=== PATIENT | female | born 1995 | race Caucasian/White ===

== ENCOUNTER 2017-07-03 09:54 | Inpatient (IN) ==
[2017-07-03] MEDS ORDERED: 0.9 % SODIUM CHLORIDE 2,000 ML IV ONE (10:17)
[2017-07-03] MEDS ORDERED: ACETAMINOPHEN 325 MG TABLET PO ONE (10:17)
--- NOTE | 2017-07-03 10:28 | Emergency Department Note ---
General Adult HPI - General Chief complaint: Dental/Oral Stated complaint: Tooth pain Time Seen by Provider: 07/03/17 09:59 Source: patient Mode of arrival: ambulatory Limitations: no limitations - History of Present Illness HPI Narrative: 21-year-old female presents with left-sided lower dental pain. She also has a fever and is tachycardic. She is type I diabetic. When I see the patient she actually says her 2000 bothering her. She states that yesterday she started having a cough and sinus congestion. Mom states that she had a fever of 104 last night and took medication for this which brought it down. Patient also complains of urinary symptoms and finished antibiotics recently for UTI. She denies any new back pain. She denies any nausea or vomiting. She denies any history of DKA. She has not checked her blood sugar today and it is 343 when we check it. She denies any abdominal pain. She denies any diarrhea. No shortness of breath. No TB exposure - Related Data Home Medications Medication Instructions Recorded Confirmed Insulin Glargine, Human [Lantus] 8 unit SQ HS 04/30/17 07/03/17 Insulin Lispro [Humalog] 1 unit SQ Q6 04/30/17 07/03/17 Allergies Allergy/AdvReac Type Severity Reaction Status Date / Time Sulfa (Sulfonamide AdvReac Intermediate Vomiting Verified 04/30/17 18:54 Antibiotics) Review of Systems All systems ED: reviewed and negative except as stated. Past Medical History - Past Medical History Medical history: Reports: DM (type 1), GERD, kidney stones Psychiatric history: Reports: bipolar, depression [employer] PERSON history: Reports: other (had IUD removed 04/29/17) Surgical history ED: Reports: tonsillectomy Family history: Reports: non-contributory - Social History smoking status: Never smoker Alcohol use: Reports: None Drug use: Reports: methamphetamine, other (frequently) Physical Exam Her complaint is tooth #17 but there is no tenderness. Mild swelling of the gums. No fluctuance. Limitations: no limitations General appearance: alert, in no apparent distress Head: atraumatic Eye: Present: normal appearance. Absent: conjunctival injection ENT: mucous membranes dry Neck: Present: normal inspection, full ROM Chest: Present: normal inspection, symmetric chest wall rise Respiratory: Present: normal lung sounds bilaterally Cardiovascular: Present: tachycardia, normal heart sounds Abdominal: Present: soft, normal bowel sounds. Absent: tenderness Extremities: Present: normal inspection, full ROM Neurological: Present: alert, oriented X3 Psychiatric: Present: flat affect Skin: Present: warm, dry, intact Course Course Narrative: Looks like she is in a mild DKA with an elevated anion gap and an elevated acetone level. She is dehydrated and was given 3 L of fluid. She was started on an insulin drip. She has pneumonia and urinary tract infection. Vital Signs Temperature 100.0 F H 07/03/17 09:55 Pulse Rate 127 H 07/03/17 09:55 Respiratory Rate 18 07/03/17 09:55 Blood Pressure 110/76 07/03/17 09:55 Pulse Oximetry (%) 97 07/03/17 09:55 Temperature 98 F 07/03/17 14:35 Pulse Rate 103 H 07/03/17 14:35 Respiratory Rate 16 07/03/17 14:35 Blood Pressure 103/70 07/03/17 14:35 Pulse Oximetry (%) 100 07/03/17 14:35 Medical Decision Making - Lab Data Lab results reviewed: Yes I reviewed the patient's lab results. Result diagrams: 07/03/17 10:31 07/03/17 10:30 Lab Results 07/03/17 07/03/17 07/03/17 Range/Units 10:29 10:29 10:30 WBC (4.5-11.0) K/mcL RBC (4.00-5.20) M/mcL Hgb (12.0-15.0) g/dL Hct (36.0-48.0) % POC Hct 37.0 (36.0-48.0) % MCV (80.0-100.0) fL MCH (26.0-34.0) pg MCHC (31.0-36.0) g/dL RDW (11.5-14.5) % Plt Count (140-440) K/mcL MPV (7.4-10.4) fL Total Counted Seg Neutrophils % (38-78) % Band Neutrophils % (0-10) % Lymphocytes % (15-49) % Monocytes % (Manual) (1-12) % Reactive Lymphocytes (0-2) % Platelet Estimate (NORMAL) RBC Morphology (NORMAL) VBG pH (7.32-7.42) U VBG Lactic Acid (0.5-2.2) mmol/L POC Sodium 129 L (133-145) mmol/L Sodium 128 L (133-145) mmol/L POC Potassium 3.5 (3.3-5.1) mmol/L Potassium 4.0 (3.3-5.1) mmol/L POC Chloride 94 L (96-108) mmol/L Chloride 88 L (96-108) mmol/L Carbon Dioxide 20 L (22-30) mmol/L POC Total CO2 20 L (22-30) mmol/L Anion Gap 20.0 H (8-16) POC BUN 5 L (6-20) mg/dl BUN 7 (6-20) mg/dl Creatinine 0.7 (0.6-1.1) mg/dl POC Creatinine 0.4 L (0.6-1.1) mg/dl GFR Calculation 123 Glucose 376 H (70-105) mg/dL POC Glucose 365 H (70-105) mg/dL Calcium 9.0 (8.6-10.4) mg/dl POC WB Ioniz Calcium 1.06 L (1.16-1.32) mmol/L Total Bilirubin 0.7 (0.0-1.0) mg/dL AST 22 (0-37) U/l ALT 17 (0-40) U/l Alkaline Phosphatase 110 (39-117) U/L C-React Prot High Sens 186.7 H (1.0-3.0) mg/L Total Protein 6.6 (5.9-8.4) gm/dL Albumin 4.0 (3.2-5.2) gm/dL Globulin 2.6 (2.2-3.7) gm/dL Albumin/Globulin Ratio 1.5 (1.0-2.3) Beta-Hydroxybutyrate 2.76 H (< 0.27) mmol/L Procalcitonin 0.48 (<0.10) ng/mL Urine Color Urine Appearance Urine pH (5.0-9.0) Ur Specific [place] (1.000-1.035) Urine Protein (NEG) mg/dL Urine Glucose (UA) (NEG) mg/dL Urine Ketones (NEG) mg/dL Urine Occult Blood (<0.03) mg/dL Urine Nitrate (NEG) Urine Bilirubin (NEG) mg/dL Urine Urobilinogen (NEG) mg/dL Ur Leukocyte Esterase (NEG) /uL Urine RBC (0-1) /hpf Urine WBC (0-4) /hpf Ur Squamous Epith Cells (0-4) /hpf Ur Transition Epith Cell (0-2) /hpf Urine Bacteria (0) /hpf Ur Culture Indicated? Influenza A (Rapid) Influenza B (Rapid) 07/03/17 07/03/17 07/03/17 Range/Units 10:31 10:50 10:50 WBC 15.6 H (4.5-11.0) K/mcL RBC 4.51 (4.00-5.20) M/mcL Hgb 13.6 (12.0-15.0) g/dL Hct 39.5 (36.0-48.0) % POC Hct (36.0-48.0) % MCV 87.6 (80.0-100.0) fL MCH 30.1 (26.0-34.0) pg MCHC 34.3 (31.0-36.0) g/dL RDW 13.5 (11.5-14.5) % Plt Count 263 (140-440) K/mcL MPV 7.7 (7.4-10.4) fL Total Counted 100 Seg Neutrophils % 87 H (38-78) % Band Neutrophils % 3 (0-10) % Lymphocytes % 5 L (15-49) % Monocytes % (Manual) 4 (1-12) % Reactive Lymphocytes 1 (0-2) % Platelet Estimate Normal (NORMAL) RBC Morphology Normal (NORMAL) VBG pH (7.32-7.42) U VBG Lactic Acid (0.5-2.2) mmol/L POC Sodium (133-145) mmol/L Sodium (133-145) mmol/L POC Potassium (3.3-5.1) mmol/L Potassium (3.3-5.1) mmol/L POC Chloride (96-108) mmol/L Chloride (96-108) mmol/L Carbon Dioxide (22-30) mmol/L POC Total CO2 (22-30) mmol/L Anion Gap (8-16) POC BUN (6-20) mg/dl BUN (6-20) mg/dl Creatinine (0.6-1.1) mg/dl POC Creatinine (0.6-1.1) mg/dl GFR Calculation Glucose (70-105) mg/dL POC Glucose (70-105) mg/dL Calcium (8.6-10.4) mg/dl POC WB Ioniz Calcium (1.16-1.32) mmol/L Total Bilirubin (0.0-1.0) mg/dL AST (0-37) U/l ALT (0-40) U/l Alkaline Phosphatase (39-117) U/L C-React Prot High Sens (1.0-3.0) mg/L Total Protein (5.9-8.4) gm/dL Albumin (3.2-5.2) gm/dL Globulin (2.2-3.7) gm/dL Albumin/Globulin Ratio (1.0-2.3) Beta-Hydroxybutyrate (< 0.27) mmol/L Procalcitonin (<0.10) ng/mL Urine Color Yellow Urine Appearance Hazy Urine pH 5.0 (5.0-9.0) Ur Specific [place] 1.044 H (1.000-1.035) Urine Protein Neg (NEG) mg/dL Urine Glucose (UA) >=500 A (NEG) mg/dL Urine Ketones 80 A (NEG) mg/dL Urine Occult Blood 0.03 A (<0.03) mg/dL Urine Nitrate Neg (NEG) Urine Bilirubin Neg (NEG) mg/dL Urine Urobilinogen Neg (NEG) mg/dL Ur Leukocyte Esterase 25 A (NEG) /uL Urine RBC 9 H (0-1) /hpf Urine WBC 23 H (0-4) /hpf Ur Squamous Epith Cells 2 (0-4) /hpf Ur Transition Epith Cell < 1 (0-2) /hpf Urine Bacteria 0 (0) /hpf Ur Culture Indicated? Yes Influenza A (Rapid) Presumed negative Influenza B (Rapid) Presumed negative 07/03/17 07/03/17 Range/Units 11:07 13:49 WBC (4.5-11.0) K/mcL RBC (4.00-5.20) M/mcL Hgb (12.0-15.0) g/dL Hct (36.0-48.0) % POC Hct (36.0-48.0) % MCV (80.0-100.0) fL MCH (26.0-34.0) pg MCHC (31.0-36.0) g/dL RDW (11.5-14.5) % Plt Count (140-440) K/mcL MPV (7.4-10.4) fL Total Counted Seg Neutrophils % (38-78) % Band Neutrophils % (0-10) % Lymphocytes % (15-49) % Monocytes % (Manual) (1-12) % Reactive Lymphocytes (0-2) % Platelet Estimate (NORMAL) RBC Morphology (NORMAL) VBG pH 7.39 (7.32-7.42) U VBG Lactic Acid 0.9 (0.5-2.2) mmol/L POC Sodium (133-145) mmol/L Sodium (133-145) mmol/L POC Potassium (3.3-5.1) mmol/L Potassium (3.3-5.1) mmol/L POC Chloride (96-108) mmol/L Chloride (96-108) mmol/L Carbon Dioxide (22-30) mmol/L POC Total CO2 (22-30) mmol/L Anion Gap (8-16) POC BUN (6-20) mg/dl BUN (6-20) mg/dl Creatinine (0.6-1.1) mg/dl POC Creatinine (0.6-1.1) mg/dl GFR Calculation Glucose (70-105) mg/dL POC Glucose (70-105) mg/dL Calcium (8.6-10.4) mg/dl POC WB Ioniz Calcium (1.16-1.32) mmol/L Total Bilirubin (0.0-1.0) mg/dL AST (0-37) U/l ALT (0-40) U/l Alkaline Phosphatase (39-117) U/L C-React Prot High Sens (1.0-3.0) mg/L Total Protein (5.9-8.4) gm/dL Albumin (3.2-5.2) gm/dL Globulin (2.2-3.7) gm/dL Albumin/Globulin Ratio (1.0-2.3) Beta-Hydroxybutyrate (< 0.27) mmol/L Procalcitonin (<0.10) ng/mL Urine Color Urine Appearance Urine pH (5.0-9.0) Ur Specific [place] (1.000-1.035) Urine Protein (NEG) mg/dL Urine Glucose (UA) (NEG) mg/dL Urine Ketones (NEG) mg/dL Urine Occult Blood (<0.03) mg/dL Urine Nitrate (NEG) Urine Bilirubin (NEG) mg/dL Urine Urobilinogen (NEG) mg/dL Ur Leukocyte Esterase (NEG) /uL Urine RBC (0-1) /hpf Urine WBC (0-4) /hpf Ur Squamous Epith Cells (0-4) /hpf Ur Transition Epith Cell (0-2) /hpf Urine Bacteria (0) /hpf Ur Culture Indicated? Influenza A (Rapid) Influenza B (Rapid) - Radiology Data Radiology results reviewed: Yes I reviewed the patient's radiology results. 1. Mild right apical infiltrate consistent with pneumonia. 2. Otherwise negative chest x-ray Disposition Pt seen by MYS[facility] DBA/PA only: Yes Clinical Impression: Diabetic Ketoacidosis, Community acquired bacterial pneumonia UTI (urinary tract infection) Qualifiers: Urinary tract infection type: acute cystitis Disposition: Xfer As Inpt ([facility]) Condition: Fair
--- NOTE | 2017-07-03 10:46 | XRay Report ---
INDICATION: Cough. Fever. TECHNIQUE: PA and lateral upright chest x-ray COMPARISON: 03/04/2017. 07/05/2016 FINDINGS:Relatively subtle right apical infiltrate. This is consistent with pneumonia. Follow-up radiographs recommended. Lungs are otherwise negative. Heart size and vascularity are normal. Shireen and mediastinum are negative. Incidental note is made of a pectus excavatum deformity. Thoracic spine is negative. No compression deformities IMPRESSION: 1. Mild right apical infiltrate consistent with pneumonia. 2. Otherwise negative chest x-ray Interpreted and Authenticated by: Riki Alas 07/03/17
[2017-07-03] MEDS ORDERED: cefTRIAXone 1 GM VIAL IV ONE (10:57)
[2017-07-03 11:08] LABS: Mean Cell Volume 87.6 fL (80.0-100.0); Mean Corpuscular HGB Conc 34.3 g/dL (31.0-36.0); Mean Corpuscular Hemoglobin 30.1 pg (26.0-34.0); Platelet Count 263 K/mcL (140-440); RBC 4.51 M/mcL (4.00-5.20); Red Cell Distribution Width 13.5 % (11.5-14.5)
[2017-07-03] MEDS ORDERED: INSULIN REGULAR, HUMAN 1 UNIT/0.01 ML UNIT SQ ONE (11:20)
[2017-07-03 11:24] LABS: Band Neutrophils % 3 % (0-10); Lymphocytes % 5 % (15-49); Monocytes % (Manual) 4 % (1-12); Platelet Estimate NORMAL (NORMAL); RBC Morphology NORMAL (NORMAL); Segmented Neutrophils % 87 % (38-78)
[2017-07-03 11:28] LABS: ALT/SGPT 17 U/l (0-40); Albumin/Globulin Ratio 1.5 (1.0-2.3); Alkaline Phosphatase 110 U/L (39-117); Blood Urea Nitrogen 7 mg/dl (6-20)
[2017-07-03 11:40] LABS: Appearance,Urine HAZY; Bacteria,Urine 0 /hpf (0); Bilirubin,Urine NEG (NEG); Color,Urine YELLOW; Glucose,Urine (UA) >=500 mg/dL (NEG); Leukocyte Esterase,Urine 25 /uL (NEG); Protein,Urine NEG (NEG); Specific Gravity,Urine 1.044 (1.000-1.035); Urine Blood 0.03 mg/dL (<0.03); Urine RBC 9 /hpf (0-1); Urine Squamous Epithelial Cell 2 /hpf (0-4); Urine Transitional Epi Cells < 1 /hpf (0-2); Urine WBC 23 /hpf (0-4); Urobilinogen,Urine NEG (NEG)
[2017-07-03 11:41] LABS: Beta Hydroxybutyrate 2.76 mmol/L (< 0.27); CRP,High Sensitivity 186.7 mg/L (1.0-3.0)
[2017-07-03] MEDS ORDERED: AZITHROMYCIN 500 MG in DEXTROSE 5% IN WATER 250 ML IV ONE (12:58)
[2017-07-03] MEDS ORDERED: INSULIN REGULAR, HUMAN 50 UNIT in 0.9 % SODIUM CHLORIDE 99.5 ML IV ONE (13:04)
[2017-07-03] MEDS ORDERED: DEXTROSE 5%-1/2NS 1,000 ML IV ONE (13:06)
[2017-07-03] MEDS ORDERED: AZITHROMYCIN 500 MG VIAL IV ONE (13:13)
--- NOTE | 2017-07-03 13:56 | Internal Med History&Physical ---
Medical - H&P: HPI Patient information: Note initiated : 07/03/17 at 1:52 pm Service Date, if different from initiated Date: [] Patient: Elizabeth To a 21 y/o F admitted on for Tooth pain. Chief Complaint: [] History of present illness: Ms. To is a 21 year old Female with h/o Typ1 DM, on insulin presents to the ER today for dental, pain, not feeling well for the last few days According to the patient she has not been feeling well since Wednesday, her situation worsened on when she slept the whole day she has been having pain in the left lower jaw, fever chills drowsiness fatigue nausea, and since she was getting worse she was brought to the hospital. Mother was at bedside who provided most of the history patient did not answer many questions directly. According to the mother the patient has not been doing well for the last few days, and she has been checking on her daughter on Facebook to see how she was doing the mother has not seen the doctor online since and therefore was concerned and sent a friend to check on her and they found that the patient was not doing well and was therefore brought into the hospital. The patient admits to having some cough that started today, she notes she has nausea but no vomiting, she notes she has symptoms suggestive of UTI. She has not passed any urine yesterday according to the mother. The patient notes that she has been having dental infection for the last 3 months, she has seen providers at the [facility] who would not do a dental extraction because of elevated glucose values. She notes she has been taking insulin regularly but has skipped her insulin over the last 2-3 days. She has never been admitted to the hospital for DKA. Patient is febrile in the ED temperature 101.4, tachycardic with a heart rate of 100 110, respiration is normal, blood pressure stable 101/69 patient saturating 100% on room air. Patient chest x-ray is interpreted as a right apical lobe pneumonia. Mild. Patient's labs show elevated WBC count of 15,000, hemoglobin 13.6, sodium is 129 , potassium 4.0, bicarbonate 20, anion gap is 20, BUN 7 creatinine 0.7 glucose elevated at 376, beta hydroxybutyrate elevated at 2.76, pro calcitonin 0.56, lactic acid is 0.9. UA shows positive WBCs RBCs and a few leukocyte esterase, elevated glucose values. ketones present Patient was admitted to the ICU with a diagnosis of DKA, secondary to noncompliance with insulin as well as infection, dental infection as well as right pneumonia. There is also a possible UTI All systems: reviewed and no additional remarkable complaints except as stated ( as per HPI) Medical - H&P: PMH Medical history: Type 1 diabetes She admits to having history of anxiety-depression is not on any medications for same Surgical history: History of tonsillectomy Family history: reviewed and not pertinent Social history: Lives by herself Denies any history of smoking recreational drug use Medical - H&P: Meds Home Medications Medication Instructions Recorded Confirmed Type Insulin Glargine, Human [Lantus] 8 unit SQ HS 04/30/17 07/03/17 History Insulin Lispro [Humalog] 1 unit SQ Q6 04/30/17 07/03/17 History Allergies Allergy/AdvReac Type Severity Reaction Status Date / Time Sulfa (Sulfonamide AdvReac Intermediate Vomiting Verified 04/30/17 18:54 Antibiotics) Medical - H&P: Exam - Constitutional Vitals: Temp Pulse Resp BP Pulse Ox 101.4 F H 96 H 18 98/64 100 07/03/17 10:11 07/03/17 11:31 07/03/17 13:01 07/03/17 13:01 07/03/17 11:31 Exam: GENERAL: The patient is a well-developed, well-nourished in no apparent distress. Is alert and oriented x3. VITAL SIGNS: Reviewed and as noted elsewhere. HEENT: Head is normocephalic and atraumatic. Extraocular muscles are intact. Pupils are equal, round, and reactive to light. Nares appeared normal. Mouth appears any without lesions. Mucous membranes are dry Left lower dentition reviewed, patient has dental caries in the left molar wisdom tooth, tenderness surrounding the region, pus surrounding the tooth. NECK: Normal to inspection, Supple, No lymphadenopathy or thyromegaly. LUNGS: Air entry equal on both sides, no wheezing, crackles or rhonchi noted. No accessory muscles of respiration HEART: Regular rate and rhythm normal, S1 and S2 heard, no Gallop, S3 or Rub Noted, No Gross murmur heard. ABDOMEN: Soft, nontender, and nondistended. Positive bowel sounds. No hepatosplenomegaly was noted. EXTREMITIES: No cyanosis, clubbing, rash, lesions or edema. NEUROLOGIC: Cranial nerves II through XII are grossly intact. Motor and Sensory System Grossly Intact PSYCHIATRIC: Normal affect, Normal Mood. Appropriate Behavior. SKIN: No ulceration or wounds noted, No jaundice, No rash noted. Medical - H&P: Reslt - Labs CBC & Chem 7: 07/03/17 10:31 07/03/17 10:30 Labs: Short CBC 07/03/17 Range/Units 10:31 WBC 15.6 H (4.5-11.0) K/mcL Hgb 13.6 (12.0-15.0) g/dL Hct 39.5 (36.0-48.0) % Plt Count 263 (140-440) K/mcL BMP 07/03/17 10:30 Sodium 128 L Potassium 4.0 Chloride 88 L Carbon Dioxide 20 L BUN 7 Creatinine 0.7 Glucose 376 H Calcium 9.0 Liver Function 07/03/17 Range/Units 10:30 Total Bilirubin 0.7 (0.0-1.0) mg/dL AST 22 (0-37) U/l ALT 17 (0-40) U/l Alkaline Phosphatase 110 (39-117) U/L Albumin 4.0 (3.2-5.2) gm/dL Urine 07/03/17 Range/Units 10:50 Urine Color Yellow Urine Appearance Hazy Urine pH 5.0 (5.0-9.0) Ur Specific [place] 1.044 H (1.000-1.035) Urine Protein Neg (NEG) mg/dL Urine Glucose (UA) >=500 A (NEG) mg/dL Medical - H&P: A/P - Narrative A/P Narrative: A/P Diabetic Ketoacidosis [place] Dental Abscess Type 1 Diabetes Urinary Tract Infection Plan Admit to ICU IV fluids, Insulin ggt, q1h finger stick, d5 half ns saline, with KCL for now, IV saline bolux x 1 IV ertanepum and iv zithromax for antibiotics covergae, She has dental abscess, UTI and pneumoina. IV PPI trend labs watch for low mg, low phos, low K, and treat switch to sq once gap closed, and able to tolerate po well will need dental extraction, in the near future, but will need infection to be controlled first. DVT hep sq Diet NPO
[2017-07-03] MEDS ORDERED: ONDANSETRON 4 MG/2 ML VIAL IV ONE (14:09)
[2017-07-03] MEDS ORDERED: ONDANSETRON 4 MG/2 ML VIAL IV PRN (14:42)
[2017-07-03] MEDS ORDERED: NALOXONE HCL 0.4 MG/ML VIAL IV PRN (14:42)
[2017-07-03] MEDS ORDERED: 0.9 % SODIUM CHLORIDE 1,000 ML IV ONE (14:42)
[2017-07-03] MEDS: DEXTROSE 5%-1/2NS W/20MEQ KCL 1,000 ML IV SCH ×3 (15:22→20:26)
[2017-07-03] MEDS: PANTOPRAZOLE 40 MG VIAL IV SCH (15:29)
[2017-07-03] MEDS: ACETAMINOPHEN 325 MG TABLET PO PRN ×2 (15:31→21:03)
[2017-07-03] MEDS: 0.9 % SODIUM CHLORIDE 10 ML SYRINGE IV SCH ×2 (15:32→21:54)
[2017-07-03] MEDS ORDERED: DEXTROSE 50% 50 ML VIAL IV ONE (15:40)
[2017-07-03 15:44] LABS: Amphetamine Screen,Urine SUSPECT POSITIVE (NONDETECTED); Benzodiazepines Screen,Urine NONE DETECTED (NONDETECTED); Cocaine Screen,Urine NONE DETECTED (NONDETECTED); Opiate Screen,Urine NONE DETECTED (NONDETECTED); Oxycodone, Urine Screen NONE DETECTED (NONDETECTED)
[2017-07-03] MEDS: PROMETHAZINE 25 MG/ML VIAL IV PRN ×2 (16:00→21:04)
[2017-07-03] MEDS: ERTAPENEM 1 GM in 0.9 % SODIUM CHLORIDE 50 ML IV SCH (16:17)
[2017-07-03] MEDS ORDERED: MAGNESIUM SULFATE 2 GM/50 ML BAG IV ONE (17:32)
[2017-07-03] MEDS ORDERED: POTASSIUM PHOSPHATE 20 MEQ in DEXTROSE 5% IN WATER 250 ML IV ONE (17:32)
[2017-07-03] MEDS ORDERED: DEXTROSE 50% 50 ML VIAL IV PRN ×2 (17:55→20:47)
[2017-07-03 18:12] LABS: Blood Urea Nitrogen 5 mg/dl (6-20)
[2017-07-03] MEDS ORDERED: POTASSIUM PHOSPHATE 66 MEQ/15 ML VIAL IV ONE (19:51)
[2017-07-03 20:27] LABS: Blood Urea Nitrogen 4 mg/dl (6-20)
[2017-07-03] MEDS ORDERED: DEXTROSE 31 GM ORAL.SUSP PO PRN (20:47)
[2017-07-03] MEDS: 0.9 % SODIUM CHLORIDE 1,000 ML IV SCH (20:57)
[2017-07-03] MEDS: INSULIN LISPRO 1 UNIT/0.01 ML UNIT SQ SCH (20:58)
[2017-07-03] MEDS ORDERED: INSULIN GLARGINE, HUMAN 1 UNIT/0.01 ML SQ ONE (20:59)
[2017-07-03] MEDS: DOCUSATE SODIUM 100 MG CAPSULE PO SCH (21:03)
[2017-07-03] MEDS: HEPARIN 5,000 UNIT/ML VIAL SQ SCH (21:04)
[2017-07-03] MEDS: INSULIN GLARGINE, HUMAN 1 UNIT/0.01 ML SQ SCH (21:04)
[2017-07-03] MEDS ORDERED: IBUPROFEN 600 MG TABLET PO ONE (21:49)
[2017-07-03] MEDS ORDERED: INSULIN REGULAR, HUMAN 50 UNIT in 0.9 % SODIUM CHLORIDE 100 ML IV SCH (22:00)
[2017-07-03] MEDS ORDERED: VANCOMYCIN 1,000 MG in 0.9 % SODIUM CHLORIDE 250 ML IV ONE (23:21)
[2017-07-03] MEDS ORDERED: VANCOMYCIN PER PHARMACY IV ONE (23:21)
[2017-07-04] MEDS ORDERED: 0.9 % SODIUM CHLORIDE 1,000 ML IV ONE ×2 (04:13→04:14)
[2017-07-04 05:00] LABS: Basophils # (Auto) 0 K/mcL (0.0-0.3); Basophils % (Auto) 0 % (0.0-2.0); Eosinophils # (Auto) 0.3 K/mcL (0.0-0.7); Eosinophils % (Auto) 3.2 % (0.0-7.0); Granulocytes % (Auto) 78.3 % (38.0-78.0); Lymphocytes # (Auto) 1.1 K/mcL (1.5-4.8); Lymphocytes % (Auto) 10.7 % (15.5-49.0); Mean Cell Volume 88.5 fL (80.0-100.0); Mean Corpuscular HGB Conc 34.1 g/dL (31.0-36.0); Mean Corpuscular Hemoglobin 30.1 pg (26.0-34.0); Monocytes # (Auto) 0.8 K/mcL (0.1-0.9); Monocytes % (Auto) 7.8 % (1.0-12.0); Platelet Count 189 K/mcL (140-440); RBC 3.65 M/mcL (4.00-5.20); Red Cell Distribution Width 13.2 % (11.5-14.5)
[2017-07-04 05:12] LABS: ALT/SGPT 11 U/l (0-40); Albumin 2.3 gm/dL (3.2-5.2); Albumin/Globulin Ratio 1.2 (1.0-2.3); Alkaline Phosphatase 58 U/L (39-117); Bilirubin,Direct < 0.2 mg/dL (0.0-0.3); Blood Urea Nitrogen 5 mg/dl (6-20); Gamma Glutamyl Transpeptidase 8 U/L (5-36); Uric Acid 1.7 mg/dL (2.5-8.0)
[2017-07-04] MEDS: 0.9 % SODIUM CHLORIDE 10 ML SYRINGE IV SCH ×3 (06:15→22:08)
[2017-07-04] MEDS ORDERED: VANCOMYCIN PER PHARMACY IV SCH (07:15)
[2017-07-04] MEDS ORDERED: MAGNESIUM SULFATE 2 GM/50 ML BAG IV ONE (07:54)
[2017-07-04] MEDS ORDERED: POTASSIUM PHOSPHATE 40 MEQ in DEXTROSE 5% IN WATER 500 ML IV ONE (08:00)
[2017-07-04] MEDS: PROMETHAZINE 25 MG/ML VIAL IV PRN ×2 (08:16→21:00)
[2017-07-04] MEDS: PANTOPRAZOLE 40 MG VIAL IV SCH (08:16)
[2017-07-04] MEDS: ERTAPENEM 1 GM in 0.9 % SODIUM CHLORIDE 50 ML IV SCH (08:19)
--- NOTE | 2017-07-04 08:20 | Emergency Department Note ---
ED Note Addendum Note Addendum: I saw this patient with Ricarda Lopez PA-C. I agree with her evaluation management documentation. In particular it is noted this patient has DKA likely from community-acquired pneumonia dental abscess and a UTI. She was started on antibiotics and insulin along with IV fluids here in the ER. Admitted to Dr. Simmons
[2017-07-04] MEDS ORDERED: VANCOMYCIN 1,000 MG in 0.9 % SODIUM CHLORIDE 250 ML IV SCH (09:00)
[2017-07-04] MEDS ORDERED: AZITHROMYCIN 250 MG in DEXTROSE 5% IN WATER 250 ML IV SCH (09:00)
[2017-07-04] MEDS: DOCUSATE SODIUM 100 MG CAPSULE PO SCH ×2 (09:27→21:51)
[2017-07-04] MEDS: HEPARIN 5,000 UNIT/ML VIAL SQ SCH ×2 (09:30→21:51)
[2017-07-04] MEDS: ACETAMINOPHEN 325 MG TABLET PO PRN ×3 (09:30→23:51)
[2017-07-04] MEDS: INSULIN LISPRO 1 UNIT/0.01 ML UNIT SQ SCH ×4 (09:42→21:51)
[2017-07-04] MEDS: 0.9 % SODIUM CHLORIDE 1,000 ML IV SCH (10:19)
--- NOTE | 2017-07-04 11:42 | Internal Med Progress Note ---
Medical - PN: Subj Patient information: Note initiated : 07/04/17 at 11:40 am Service Date, if different from initiated Date: [] Patient: Elizabeth To a 21 y/o F admitted on 07/03/17 for Tooth pain. Chief Complaint: [] Interval history: Ms. To is a 21 year old Female with h/o Typ1 DM, on insulin presents to the ER today for dental, pain, not feeling well for the last few days According to the patient she has not been feeling well since Wednesday, her situation worsened on when she slept the whole day she has been having pain in the left lower jaw, fever chills drowsiness fatigue nausea, and since she was getting worse she was brought to the hospital. Mother was at bedside who provided most of the history patient did not answer many questions directly. According to the mother the patient has not been doing well for the last few days, and she has been checking on her daughter on Facebook to see how she was doing the mother has not seen the doctor online since and therefore was concerned and sent a friend to check on her and they found that the patient was not doing well and was therefore brought into the hospital. The patient admits to having some cough that started today, she notes she has nausea but no vomiting, she notes she has symptoms suggestive of UTI. She has not passed any urine yesterday according to the mother. The patient notes that she has been having dental infection for the last 3 months, she has seen providers at the [facility] who would not do a dental extraction because of elevated glucose values. She notes she has been taking insulin regularly but has skipped her insulin over the last 2-3 days. She has never been admitted to the hospital for DKA. Patient is febrile in the ED temperature 101.4, tachycardic with a heart rate of 100 110, respiration is normal, blood pressure stable 101/69 patient saturating 100% on room air. Patient chest x-ray is interpreted as a right apical lobe pneumonia. Mild. Patient's labs show elevated WBC count of 15,000, hemoglobin 13.6, sodium is 129 , potassium 4.0, bicarbonate 20, anion gap is 20, BUN 7 creatinine 0.7 glucose elevated at 376, beta hydroxybutyrate elevated at 2.76, pro calcitonin 0.56, lactic acid is 0.9. UA shows positive WBCs RBCs and a few leukocyte esterase, elevated glucose values. ketones present Patient was admitted to the ICU with a diagnosis of DKA, secondary to noncompliance with insulin as well as infection, dental infection as well as right pneumonia. There is also a possible UTI July 04 The patient seen examined, overnight events noted She had fever and low bp overnight, responded to IV fluids. BP Stable now. Her anion gap closed yesterday and she was transitioned to subcu Lantus, she tolerated the transition well. This morning Remained closed. Patient blood cultures positive for gram-positive cocci 4 out of 4 bottles. Morning patient reported that she admits using IV drug use, last use 1 week ago IV heroin He also admits to use of methamphetamines, urine tox is positive for meth low phosphate and low potassium to be replaced, replace magnesium continue to monitor in the unit. echo ordered , lopez placed Pertinent ROS: Denies headache, dizziness Denies chest pain, palpitations Denies cough or shortness of breath Denies abdominal pain, nausea or vomiting. Additional PMFSH (Level 3 Only): Medical History Chest pain (Acute) Back pain (Chronic) Abdominal pain (Chronic) Malaise (Chronic) Suicidal thoughts (Chronic) GERD (gastroesophageal reflux disease) (Chronic) Eczema (Chronic) History of kidney stones (Chronic) Right sided abdominal pain (Chronic) Urinary calculi (Chronic) Ureteral obstruction (Chronic) Anxiety disorder (Chronic) Depression with anxiety (Chronic) Thoracic back pain (Chronic) Hydronephrosis (Chronic) Urinary tract infection (Chronic) Cough (Chronic) Gastroesophageal reflux during in second trimester, antepartum ( Chronic) Chronic cough (Chronic) Spasm of thoracolumbar muscle (Chronic) Urinary tract infection (Chronic) Urinary tract infection (Chronic) Cramps, extremity (Chronic) - Constitutional Vitals: Vital Signs Temp Pulse Resp BP Pulse Ox 96.1 F L 72 12 103/75 98 07/04/17 07:00 07/04/17 05:01 07/04/17 07:00 07/04/17 07:00 07/04/17 07:00 Period Temp Pulse Resp BP Sys/Payne Pulse Ox Last 24 Hr 94.7 F-101.9 F 68-105 10-28 70-111/48-75 95-100 Intake and Output 07/03/17 07/04/17 07/04/17 21:59 05:59 13:59 Intake Total 2504 / 2504 2654.5455 / 2654.5455 1600 / 1600 Output Total 700 / 700 1350 / 1350 Balance 1804 / 1804 1304.5455 / 1304.5455 1600 / 1600 Weight 119 lb 12.8 oz Intake & Output: Intake & Output 07/03/17 07/04/17 07/04/17 21:59 05:59 13:59 Intake Total 2504 / 2504 2654.5455 / 2654.5455 1600 / 1600 Output Total 700 / 700 1350 / 1350 Balance 1804 / 1804 1304.5455 / 1304.5455 1600 / 1600 Weight 119 lb 12.8 oz Intake: IV 2504 / 2504 2654.5455 / 2654.5455 1600 / 1600 Sodium Chloride 0.9% 1,000 ml @ 2000 / 2000 1000 / 1000 75 mls/hr IV .[id number] [facility] Rx#: [id number] Zithromax 250 mg In Dextrose 5% 250 / 250 in Water 250 ml @ 250 mls/hr IV DAILY [facility] Rx#:[id number] Dextrose 5%-1/2Ns IV Solution 1 429 / 429 ,000 ml @ 250 mls/hr IV .Q4H ONE Rx#:[id number] Dextrose 5%-1/2Ns W/20Meq KCl 1 1025 / 1025 ,000 ml @ 200 mls/hr IV .Q5H [facility] Rx#:[id number] INVanz 1 GM In Sodium Chloride 50 / 50 50 / 50 0.9% 50 ml @ 100 mls/hr IV DAILY [facility] Rx#:[id number] Vancomycin 1,000 mg In Sodium 250 / 250 250 / 250 Chloride 0.9% 250 ml @ 250 mls/ hr IV Q12H [facility] Rx#:[id number] Output: Urine Catheter Amount 550 / 550 Void Amount 700 / 700 800 / 800 Other: # Voids 1 1 # Bowel Movements 1 Exam: Constitutional; Afebrile, cooperative, alert, not in distress. Eyes- No icterus, , No periorbital swelling Ears- Ext ear normal, hearing normal to conversation. Neck- Midline trachea, supple Respiratory system: Air Entry equal on both sides, No crackles or wheezing, no rhonchi. CVS- Rate rhythm regular, S1,S2 heard, no gallop, no rub. Abdomen- Soft nontender abdomen, no organomegaly, no tenderness, no guarding or rigidity, [employer]- AOOx3, moving all extremities, no gross focal deficit noted. Medical - PN: Obj Da - Labs CBC & Chem 7: 07/04/17 04:00 07/04/17 04:00 Labs: Abnormal Lab Results 07/04/17 07/04/17 07/04/17 04:00 04:00 04:00 WBC RBC 3.65 L Hgb 11.0 L Hct 32.3 L Gran % 78.3 H Lymph % (Auto) 10.7 L Gran # 8.4 H Lymph # (Auto) 1.1 L Seg Neutrophils % Lymphocytes % POC Sodium Sodium Potassium POC Chloride Chloride Carbon Dioxide 18 L POC Total CO2 Anion Gap POC BUN BUN 5 L Creatinine 0.5 L POC Creatinine Glucose 221 H POC Glucose Uric Acid 1.7 L Calcium 6.4 L POC WB Ioniz Calcium Phosphorus 2.3 L C-React Prot High Sens Total Protein 4.3 L Albumin 2.3 L Globulin 2.0 L Beta-Hydroxybutyrate 0.71 H Ur Specific [place] Urine Glucose (UA) Urine Ketones Urine Occult Blood Ur Leukocyte Esterase Urine RBC Urine WBC Ur Amphetamines Screen Mycoplasma pneumon IgM 07/03/17 07/03/17 07/03/17 19:30 17:07 13:59 WBC RBC Hgb Hct Gran % Lymph % (Auto) Gran # Lymph # (Auto) Seg Neutrophils % Lymphocytes % POC Sodium Sodium Potassium 3.2 L POC Chloride Chloride Carbon Dioxide 21 L 20 L POC Total CO2 Anion Gap POC BUN BUN 4 L 5 L Creatinine 0.5 L POC Creatinine Glucose 184 H 217 H POC Glucose Uric Acid Calcium 7.6 L 7.2 L POC WB [employer]iz Calcium Phosphorus 2.6 L C-React Prot High Sens Total Protein Albumin Globulin Beta-Hydroxybutyrate Ur Specific [place] Urine Glucose (UA) Urine Ketones Urine Occult Blood Ur Leukocyte Esterase Urine RBC Urine WBC Ur Amphetamines Screen Mycoplasma pneumon IgM 07/03/17 07/03/17 07/03/17 10:50 10:45 10:45 WBC RBC Hgb Hct Gran % Lymph % (Auto) Gran # Lymph # (Auto) Seg Neutrophils % Lymphocytes % POC Sodium Sodium Potassium POC Chloride Chloride Carbon Dioxide POC Total CO2 Anion Gap POC BUN BUN Creatinine POC Creatinine Glucose POC Glucose Uric Acid Calcium POC WB [employer] Calcium Phosphorus C-React Prot High Sens Total Protein Albumin Globulin Beta-Hydroxybutyrate Ur Specific [place] 1.044 H Urine Glucose (UA) >=500 A Urine Ketones 80 A Urine Occult Blood 0.03 A Ur Leukocyte Esterase 25 A Urine RBC 9 H Urine WBC 23 H Ur Amphetamines Screen Suspect positive A Mycoplasma pneumon IgM Positive A 07/03/17 07/03/17 07/03/17 10:31 10:30 10:29 WBC 15.6 H RBC Hgb Hct Gran % Lymph % (Auto) Gran # Lymph # (Auto) Seg Neutrophils % 87 H Lymphocytes % 5 L POC Sodium 129 L Sodium 128 L Potassium POC Chloride 94 L Chloride 88 L Carbon Dioxide 20 L POC Total CO2 20 L Anion Gap 20.0 H POC BUN 5 L BUN Creatinine POC Creatinine 0.4 L Glucose 376 H POC Glucose 365 H Uric Acid Calcium POC WB [place] Calcium 1.06 L Phosphorus C-React Prot High Sens 186.7 H Total Protein Albumin Globulin Beta-Hydroxybutyrate 2.76 H Ur Specific [place] Urine Glucose (UA) Urine Ketones Urine Occult Blood Ur Leukocyte Esterase Urine RBC Urine WBC Ur Amphetamines Screen Mycoplasma pneumon IgM Meds: Medications Acetaminophen (Tylenol) 650 mg PO Q4-6HP PRN PRN Reason: PAIN/FEVER > 101 Last Admin: 07/04/17 09:30 Dose: 650 mg Dextrose (Dextrose 50%) 25 ml IV UD PRN PRN Reason: Hypoglycemia Dextrose (Dextrose 50%) 0 ml IV UD PRN PRN Reason: Hypoglycemia Diagnostic Test (Pha) (Accu-Chek) 1 each FS ACHS [facility] Last Admin: 07/04/17 09:30 Dose: 1 each Docusate Sodium (Colace) 100 mg PO BID [facility] Last Admin: 07/04/17 09:27 Dose: Not Given Glucose (Insta-Glucose) 15 gm PO PRN PRN PRN Reason: Hypoglycemia Heparin Sodium (Porcine) (Heparin) 5,000 unit SQ Q12 [facility] Last Admin: 07/04/17 09:30 Dose: 5,000 unit Azithromycin 250 mg/ Dextrose 250 mls @ 250 mls/hr IV DAILY [facility] Stop: 07/07/17 09:59 Last Infusion: 07/04/17 10:01 Dose: Infused Ertapenem 1 gm/ Sodium (Chloride) 50 mls @ 100 mls/hr IV DAILY [facility] Last Infusion: 07/04/17 10:01 Dose: Infused Sodium Chloride (Sodium Chloride 0.9%) 1,000 mls @ 75 mls/hr IV .[id number] [facility] Stop: 07/04/17 23:39 Last Admin: 07/04/17 10:19 Dose: 75 mls/hr Vancomycin HCl 1,000 mg/ (Sodium Chloride) 250 mls @ 250 mls/hr IV Q12H [facility] Last Infusion: 07/04/17 10:01 Dose: Infused Potassium Phosphate 40 meq/ (Dextrose) 509.0909 mls @ 127.273 mls/hr IV ONCE ONE Stop: 07/04/17 11:59 Last Admin: 07/04/17 08:12 Dose: 127.273 mls/hr Insulin Glargine (Lantus) 8 unit SQ HS [facility] Last Admin: 07/03/17 21:04 Dose: 8 unit Insulin Human Lispro (Humalog) 0 unit SQ ACHS [facility] PRN Reason: Protocol Last Admin: 07/04/17 09:42 Dose: 3 unit Naloxone HCl (Narcan) 0.1 mg IV Q2MIN PRN PRN Reason: Opiate Reversal Ondansetron HCl (Zofran) 4 mg IV Q4-6HP PRN PRN Reason: Nausea And Vomiting Pantoprazole Sodium (Protonix) 40 mg IV QAMAC [facility] Last Admin: 07/04/17 08:16 Dose: 40 mg Promethazine HCl (Phenergan) 12.5 mg IV Q4-6HP PRN PRN Reason: Nausea And Vomiting Last Admin: 07/04/17 08:16 Dose: 12.5 mg Sodium Chloride (Saline Flush) 10 ml IV Q8 [facility] Last Admin: 07/04/17 06:15 Dose: Not Given Vancomycin HCl (Vancomycin Per Pharmacy) 1 order IV UD [facility] - ABG Interpretation ABG results: 07/03/17 13:49 VBG pH 7.39 Medical - PN: A/P - Time Spent With Patient Total time spent is greater than 50% in coordination of care (as documented) at patient's floor/unit and/or counseling patient: - Narrative A/P Narrative: A/P Diabetic Ketoacidosis- resolved, anion gap closed, continue lantus and ssi, pt tolerating po diet well Pneumonia: On IV ertapenem as well as Zithromax, await cultures, given blood culture positive for gram-positive cocci, vancomycin added last night. Gram-positive bacteremia-patient has a history of IV drug abuse, given high- grade bacteremia and echo look for endocarditis, wait for the treatment to clear before placing the line. Patient will likely need IV antibiotics for 4-6 weeks. Dental Abscess: Should be covered with antibiotics used above. Eventually need dental extraction to consider to be done as an outpatient unless and until patient's symptoms warrant inpatient extraction Type 1 Diabetes: Back to Lantus sliding scale insulin Urinary Tract Infection: Above antibiotic should cover, await cultures [id number]: Replace Hypotension-patient's blood pressure is stable with IV fluid resuscitation, if the pressure drops again will likely need pressor support. Check lactic acid DVT hep sq Diet consistent carb diet Medical - PN: Qual - VTE Deep Vein Thrombosis/Pulmonary Embolism Present on Admission: No
--- NOTE | 2017-07-04 18:21 | Event Note ---
Temp Petr this afternoon. Pain and swelling left buccal area. Defnitive blood cultures result: NO STAPH AUREUS OR EPIDERMIA DETECTED NO ENTEROCOCCUS POSITIVE FOR GROUP A STREP (PYOGENES) Recommended treatment per ClinicalUptodate: Pen G and Clindamycin. Will discontinue Vanco and Ertapenem Will also check for HIV and Hepatitis infection Will need to consider surgical management of dental abscess
[2017-07-04] MEDS: CLINDAMYCIN 900 MG in DEXTROSE 5% IN WATER 50 ML IV SCH (19:48)
[2017-07-04] MEDS: PENICILLIN G POTASSIUM 4,000,000 UNIT in 0.9 % SODIUM CHLORIDE 50 ML IV SCH (20:13)
[2017-07-04] MEDS ORDERED: PENICILLIN G POTASSIUM 4,000,000 UNIT in 0.9 % SODIUM CHLORIDE 50 ML IV ONE (21:00)
[2017-07-04] MEDS: INSULIN GLARGINE, HUMAN 1 UNIT/0.01 ML SQ SCH (21:51)
[2017-07-04] MEDS: CHLORHEXIDINE GLUCONATE 1 ML ORAL.SOL SWABMOUTH SCH (21:54)
[2017-07-05] MEDS: PENICILLIN G POTASSIUM 4,000,000 UNIT in 0.9 % SODIUM CHLORIDE 50 ML IV SCH ×6 (00:12→20:27)
[2017-07-05] MEDS ORDERED: PENICILLIN G POTASSIUM 4,000,000 UNIT in 0.9 % SODIUM CHLORIDE 50 ML IV ONE ×6 (01:00→21:00)
[2017-07-05] MEDS: CLINDAMYCIN 900 MG in DEXTROSE 5% IN WATER 50 ML IV SCH ×3 (03:07→22:15)
[2017-07-05] MEDS: 0.9 % SODIUM CHLORIDE 10 ML SYRINGE IV SCH ×4 (04:31→23:55)
[2017-07-05 05:06] LABS: Basophils # (Auto) 0 K/mcL (0.0-0.3); Basophils % (Auto) 0.1 % (0.0-2.0); Eosinophils # (Auto) 0.5 K/mcL (0.0-0.7); Eosinophils % (Auto) 4.6 % (0.0-7.0); Granulocytes % (Auto) 73.2 % (38.0-78.0); Lymphocytes # (Auto) 1.9 K/mcL (1.5-4.8); Lymphocytes % (Auto) 16.7 % (15.5-49.0); Mean Corpuscular HGB Conc 33.9 g/dL (31.0-36.0); Mean Corpuscular Hemoglobin 30.2 pg (26.0-34.0); Monocytes # (Auto) 0.6 K/mcL (0.1-0.9); Monocytes % (Auto) 5.4 % (1.0-12.0); Platelet Count 245 K/mcL (140-440); Red Cell Distribution Width 13.6 % (11.5-14.5)
[2017-07-05 05:23] LABS: ALT/SGPT 11 U/l (0-40); Albumin 2.2 gm/dL (3.2-5.2); Albumin/Globulin Ratio 0.9 (1.0-2.3); Alkaline Phosphatase 79 U/L (39-117); Bilirubin,Direct < 0.2 mg/dL (0.0-0.3); Blood Urea Nitrogen 6 mg/dl (6-20); Gamma Glutamyl Transpeptidase 7 U/L (5-36); Uric Acid 1.5 mg/dL (2.5-8.0)
[2017-07-05 06:18] LABS: Hepatitis A Antibody IgM NON REACTIVE (NEGATIVE); Hepatitis B Core IgM NON REACTIVE (NEGATIVE); Hepatitis B Surface Antigen NEGATIVE (NEGATIVE); Hepatitis C Virus Antibody NON REACTIVE (NEGATIVE)
[2017-07-05] MEDS ORDERED: INSULIN GLARGINE, HUMAN 1 UNIT/0.01 ML SQ ONE (06:32)
[2017-07-05] MEDS ORDERED: PANTOPRAZOLE 40 MG PACKET PO SCH (07:30)
[2017-07-05] MEDS: CHLORHEXIDINE GLUCONATE 1 ML ORAL.SOL SWABMOUTH SCH ×2 (08:39→20:29)
[2017-07-05] MEDS: HEPARIN 5,000 UNIT/ML VIAL SQ SCH ×2 (08:41→20:27)
[2017-07-05] MEDS: POTASSIUM CHLORIDE 20 MEQ TABLET PO SCH ×3 (08:41→17:21)
[2017-07-05] MEDS: ACETAMINOPHEN 325 MG TABLET PO PRN ×2 (08:41→16:54)
[2017-07-05] MEDS: DOCUSATE SODIUM 100 MG CAPSULE PO SCH ×2 (08:41→20:29)
[2017-07-05] MEDS: INSULIN LISPRO 1 UNIT/0.01 ML UNIT SQ SCH ×4 (08:41→20:28)
[2017-07-05] MEDS: PROMETHAZINE 25 MG/ML VIAL IV PRN (08:41)
[2017-07-05] MEDS ORDERED: MAGNESIUM SULFATE 2 GM/50 ML BAG IV ONE (13:53)
[2017-07-05] MEDS ORDERED: POTASSIUM PHOSPHATE 40 MEQ in DEXTROSE 5% IN WATER 500 ML IV ONE (13:53)
[2017-07-05] MEDS ORDERED: DEXTROSE 50% 50 ML VIAL IV PRN ×2 (17:11)
[2017-07-05] MEDS ORDERED: ACETAMINOPHEN 325 MG TABLET PO PRN (17:11)
[2017-07-05] MEDS ORDERED: NALOXONE HCL 0.4 MG/ML VIAL IV PRN (17:11)
[2017-07-05] MEDS ORDERED: DEXTROSE 31 GM ORAL.SUSP PO PRN (17:11)
[2017-07-05] MEDS ORDERED: PROMETHAZINE 25 MG/ML VIAL IV PRN (17:11)
[2017-07-05] MEDS ORDERED: ONDANSETRON 4 MG/2 ML VIAL IV PRN (17:11)
--- NOTE | 2017-07-05 19:58 | Internal Med Progress Note ---
Medical - PN: Subj Patient information: Note initiated : 07/05/17 at 7:51 pm Service Date, if different from initiated Date: [] Patient: Elizabeth To a 21 y/o F admitted on 07/03/17 for Tooth Pain/Diabetic Ketoacidosis, Pneumonia. Interval history: Ms. To is a 21 year old Female with h/o Typ1 DM, on insulin presents to the ER today for dental, pain, not feeling well for the last few days According to the patient she has not been feeling well since Wednesday, her situation worsened on when she slept the whole day she has been having pain in the left lower jaw, fever chills drowsiness fatigue nausea, and since she was getting worse she was brought to the hospital. Mother was at bedside who provided most of the history patient did not answer many questions directly. According to the mother the patient has not been doing well for the last few days, and she has been checking on her daughter on Facebook to see how she was doing the mother has not seen the doctor online since and therefore was concerned and sent a friend to check on her and they found that the patient was not doing well and was therefore brought into the hospital. The patient admits to having some cough that started today, she notes she has nausea but no vomiting, she notes she has symptoms suggestive of UTI. She has not passed any urine yesterday according to the mother. The patient notes that she has been having dental infection for the last 3 months, she has seen providers at the [facility] who would not do a dental extraction because of elevated glucose values. She notes she has been taking insulin regularly but has skipped her insulin over the last 2-3 days. She has never been admitted to the hospital for DKA. Patient is febrile in the ED temperature 101.4, tachycardic with a heart rate of 100 110, respiration is normal, blood pressure stable 101/69 patient saturating 100% on room air. Patient chest x-ray is interpreted as a right apical lobe pneumonia. Mild. Patient's labs show elevated WBC count of 15,000, hemoglobin 13.6, sodium is 129 , potassium 4.0, bicarbonate 20, anion gap is 20, BUN 7 creatinine 0.7 glucose elevated at 376, beta hydroxybutyrate elevated at 2.76, pro calcitonin 0.56, lactic acid is 0.9. UA shows positive WBCs RBCs and a few leukocyte esterase, elevated glucose values. ketones present Patient was admitted to the ICU with a diagnosis of DKA, secondary to noncompliance with insulin as well as infection, dental infection as well as right pneumonia. There is also a possible UTI July 04 The patient seen examined, overnight events noted She had fever and low bp overnight, responded to IV fluids. BP Stable now. Her anion gap closed yesterday and she was transitioned to subcu Lantus, she tolerated the transition well. This morning Remained closed. Patient blood cultures positive for gram-positive cocci 4 out of 4 bottles. Morning patient reported that she admits using IV drug use, last use 1 week ago IV heroin He also admits to use of methamphetamines, urine tox is positive for meth low phosphate and low potassium to be replaced, replace magnesium continue to monitor in the unit. echo ordered , lopez placed add: Blood cultures showed Group A Strep. Antibiotics switched to PCN and Clindamycin. July 05. T max 99 BS high > 200 Spoke with dentist Dae Michel from [facility] who has seen patient 07/02 for tooth ache. Stated that patient has alveolitis: infection of underlying bone and most likely abscess. Recommends tooth extraction, but doesn't need to happen acutely. Abscess tends to drain spontaneously. - Constitutional Vitals: Vital Signs Temp Pulse Resp BP Pulse Ox 98.9 F 93 H 13 114/70 100 07/05/17 15:59 07/05/17 14:00 07/05/17 15:59 07/05/17 15:59 07/05/17 15:59 Period Temp Pulse Resp BP Sys/Payne Pulse Ox Last 24 Hr 98.6 F-101.6 F 93-102 9-27 86-131/49-94 90-100 Intake and Output 07/05/17 07/05/17 07/05/17 05:59 13:59 21:59 Intake Total 1102 / 1102 1772 / 0394 970.0787 / 977.0909 Output Total 665 / 665 2775 / 2775 Balance 437 / 437 1772 / 1772 -1797.9091 / -1797.9091 Weight 119 lb 14.4 oz Patient Weight 07/06/17 05:59 Weight 119 lb 14.4 oz Intake & Output: Intake & Output 07/05/17 07/05/17 07/05/17 05:59 13:59 21:59 Intake Total 1102 / 1102 1772 / 0058 584.0349 / 977.0909 Output Total 665 / 665 2775 / 2775 Balance 437 / 437 1772 / 1772 -1797.9091 / -1797.9091 Weight 119 lb 14.4 oz Intake: IV 142 / 142 1172 / 1157 290.4567 / 617.0909 Cleocin 900 mg In Dextrose 5% 56 / 56 56 / 56 in Water 50 ml @ 100 mls/hr IV Q8H [facility] Rx#:[id number] Pfizerpen 4,000,000 Unit In / 116 / 116 Sodium Chloride 0.9% 50 ml @ 58 mls/hr IV Q4H [facility] Rx#: [id number] Potassium Phosphate 40 Meq In 509.0909 / 509.0909 Dextrose 5% in Water 500 ml @ 127.273 mls/hr IV ONCE ONE Rx#: [id number] Oral 600 / 600 360 / 360 GI Tube Flush 960 / 960 Output: Urine Catheter Amount 665 / 665 2775 / 2775 Other: Meal Jello Lunch Dinner Percent of Meal Consumed 100% 100% 100% Feeding Ability Independent Independent Stool Size Smear Smear Stool Color Brown Brown # of times incontinent of 1 Bowels General appearance: thin - Head Head exam: Present: normal inspection - Respiratory Respiratory exam: Present: normal respiratory exam - Cardiovascular Cardiovascular exam: Present: normal rate and rhythm - GI/Abdominal GI/Abdominal exam: Present: normal bowel sounds Medical - PN: Obj Da - Labs CBC & Chem 7: 07/05/17 03:35 07/05/17 03:35 Labs: Abnormal Lab Results 07/05/17 07/05/17 07/05/17 03:35 03:35 03:35 WBC 11.5 H RBC 3.70 L Hgb 11.2 L Hct 32.9 L Gran % Lymph % (Auto) Gran # 8.4 H Lymph # (Auto) Seg Neutrophils % Lymphocytes % POC Sodium Sodium Potassium POC Chloride Chloride Carbon Dioxide POC Total CO2 Anion Gap POC BUN BUN Creatinine 0.4 L POC Creatinine Glucose 281 H POC Glucose Uric Acid 1.5 L Calcium 7.5 L POC WB Ioniz Calcium Phosphorus 1.7 L C-React Prot High Sens Total Protein 4.7 L Albumin 2.2 L Globulin Albumin/Globulin Ratio 0.9 L Triglycerides 427 H Beta-Hydroxybutyrate 0.51 H Ur Specific [place] Urine Glucose (UA) Urine Ketones Urine Occult Blood Ur Leukocyte Esterase Urine RBC Urine WBC Ur Amphetamines Screen Mycoplasma pneumon IgM 07/04/17 07/04/17 07/04/17 04:00 04:00 04:00 WBC RBC 3.65 L Hgb 11.0 L Hct 32.3 L Gran % 78.3 H Lymph % (Auto) 10.7 L Gran # 8.4 H Lymph # (Auto) 1.1 L Seg Neutrophils % Lymphocytes % POC Sodium Sodium Potassium POC Chloride Chloride Carbon Dioxide 18 L POC Total CO2 Anion Gap POC BUN BUN 5 L Creatinine 0.5 L POC Creatinine Glucose 221 H POC Glucose Uric Acid 1.7 L Calcium 6.4 L POC WB Ioniz Calcium Phosphorus 2.3 L C-React Prot High Sens Total Protein 4.3 L Albumin 2.3 L Globulin 2.0 L Albumin/Globulin Ratio Triglycerides Beta-Hydroxybutyrate 0.71 H Ur Specific [place] Urine Glucose (UA) Urine Ketones Urine Occult Blood Ur Leukocyte Esterase Urine RBC Urine WBC Ur Amphetamines Screen Mycoplasma pneumon IgM 07/03/17 07/03/17 07/03/17 19:30 17:07 13:59 WBC RBC Hgb Hct Gran % Lymph % (Auto) Gran # Lymph # (Auto) Seg Neutrophils % Lymphocytes % POC Sodium Sodium Potassium 3.2 L POC Chloride Chloride Carbon Dioxide 21 L 20 L POC Total CO2 Anion Gap POC BUN BUN 4 L 5 L Creatinine 0.5 L POC Creatinine Glucose 184 H 217 H POC Glucose Uric Acid Calcium 7.6 L 7.2 L POC WB Ioniz Calcium Phosphorus 2.6 L C-React Prot High Sens Total Protein Albumin Globulin Albumin/Globulin Ratio Triglycerides Beta-Hydroxybutyrate Ur Specific [place] Urine Glucose (UA) Urine Ketones Urine Occult Blood Ur Leukocyte Esterase Urine RBC Urine WBC Ur Amphetamines Screen Mycoplasma pneumon IgM 07/03/17 07/03/17 07/03/17 10:50 10:45 10:45 WBC RBC Hgb Hct Gran % Lymph % (Auto) Gran # Lymph # (Auto) Seg Neutrophils % Lymphocytes % POC Sodium Sodium Potassium POC Chloride Chloride Carbon Dioxide POC Total CO2 Anion Gap POC BUN BUN Creatinine POC Creatinine Glucose POC Glucose Uric Acid Calcium POC WB Ioniz Calcium Phosphorus C-React Prot High Sens Total Protein Albumin Globulin Albumin/Globulin Ratio Triglycerides Beta-Hydroxybutyrate Ur Specific [place] 1.044 H Urine Glucose (UA) >=500 A Urine Ketones 80 A Urine Occult Blood 0.03 A Ur Leukocyte Esterase 25 A Urine RBC 9 H Urine WBC 23 H Ur Amphetamines Screen Suspect positive A Mycoplasma pneumon IgM Positive A 07/03/17 07/03/17 07/03/17 10:31 10:30 10:29 WBC 15.6 H RBC Hgb Hct Gran % Lymph % (Auto) Gran # Lymph # (Auto) Seg Neutrophils % 87 H Lymphocytes % 5 L POC Sodium 129 L Sodium 128 L Potassium POC Chloride 94 L Chloride 88 L Carbon Dioxide 20 L POC Total CO2 20 L Anion Gap 20.0 H POC BUN 5 L BUN Creatinine POC Creatinine 0.4 L Glucose 376 H POC Glucose 365 H Uric Acid Calcium POC WB Ioniz Calcium 1.06 L Phosphorus C-React Prot High Sens 186.7 H Total Protein Albumin Globulin Albumin/Globulin Ratio Triglycerides Beta-Hydroxybutyrate 2.76 H Ur Specific [place] Urine Glucose (UA) Urine Ketones Urine Occult Blood Ur Leukocyte Esterase Urine RBC Urine WBC Ur Amphetamines Screen Mycoplasma pneumon IgM Meds: Medications Acetaminophen (Tylenol) 650 mg PO Q4-6HP PRN PRN Reason: PAIN/FEVER > 101 Chlorhexidine Gluconate (Peridex) 15 ml SWABMOUTH BID [facility] Dextrose (Dextrose 50%) 25 ml IV UD PRN PRN Reason: Hypoglycemia Dextrose (Dextrose 50%) 0 ml IV UD PRN PRN Reason: Hypoglycemia Diagnostic Test (Pha) (Accu-Chek) 1 each FS ACHS [facility] Docusate Sodium (Colace) 100 mg PO BID [facility] Glucose (Insta-Glucose) 15 gm PO PRN PRN PRN Reason: Hypoglycemia Heparin Sodium (Porcine) (Heparin) 5,000 unit SQ Q12 [facility] Clindamycin Phosphate 900 mg/ (Dextrose) 56 mls @ 100 mls/hr IV Q8H [facility] Penicillin G Potassium 4,000, (000 unit/ Sodium Chloride) 58 mls @ 58 mls/hr IV Q4H [facility] Insulin Glargine (Lantus) 20 unit SQ BID [facility] Insulin Human Lispro (Humalog) 0 unit SQ ACHS [facility] PRN Reason: Protocol Magnesium Oxide (Magnesium Oxide) 400 mg PO BID [facility] Naloxone HCl (Narcan) 0.1 mg IV Q2MIN PRN PRN Reason: Opiate Reversal Ondansetron HCl (Zofran) 4 mg IV Q4-6HP PRN PRN Reason: Nausea And Vomiting Pantoprazole Sodium (Protonix) 40 mg PO QAMAC [facility] Potassium Chloride (Kdur) 20 meq PO BIDCC [facility] Last Admin: 07/05/17 17:21 Dose: Not Given Potassium/Phosphorus/Sodium (Neutra Phos) 1 packet PO BID [facility] Promethazine HCl (Phenergan) 12.5 mg IV Q4-6HP PRN PRN Reason: Nausea And Vomiting Sodium Chloride (Saline Flush) 10 ml IV Q8 [facility] - ABG Interpretation ABG results: 07/03/17 13:49 VBG pH 7.39 Medical - PN: A/P - Time Spent With Patient Total time spent is greater than 50% in coordination of care (as documented) at patient's floor/unit and/or counseling patient: 25 - 35 minutes - Narrative A/P Narrative: A/P Diabetic Ketoacidosis- resolved, anion gap closed, continue lantus and ssi, pt tolerating po diet well Pneumonia: Vanco, ertapenem, Azithromycin emprically. Switched antibiotics 07/04 Gram-positive bacteremia-patient has a history of IV drug abuse, given high- grade bacteremia and echo look for endocarditis, wait for the treatment to clear before placing the line. Patient will likely need IV antibiotics for 4-6 weeks. Blood cultures: Group A strep. 07/04 switched to Clindamycin and PCN Dental Abscess: Should be covered with antibiotics used above. Eventually need dental extraction. Case d/w dentist Dae Michel at [facility] who saw patient 07/02 : no urgent extraction indicated. Type 1 Diabetes: Back to Lantus sliding scale insulin Urinary Tract Infection:Cultures: mixed yaw and yeast. Will discontinue lopez cath [id number]: Replace Hypotension-patient's blood pressure is stable with IV fluid resuscitation, if the pressure drops again will likely need pressor support. IVD use (meth and heroine). HIV and hepatitis panel obtained Malnourishment with BMI of 18 DVT hep sq Diet consistent carb diet. Dietary consultation to help with malnourishment Medical - PN: Qual - VTE Deep Vein Thrombosis/Pulmonary Embolism Present on Admission: No
[2017-07-05] MEDS: NEUTRA PHOS 1 PACKET PO SCH (20:27)
[2017-07-05] MEDS: MAGNESIUM OXIDE 400 MG TABLET PO SCH (20:27)
[2017-07-05] MEDS: INSULIN GLARGINE, HUMAN 1 UNIT/0.01 ML SQ SCH (20:27)
[2017-07-05] MEDS ORDERED: INSULIN GLARGINE, HUMAN 1 UNIT/0.01 ML SQ SCH (21:00)
[2017-07-05] MEDS ORDERED: POTASSIUM PHOSPHATE,MONOBASIC 500 MG TABLET PO SCH (21:00)
[2017-07-06] MEDS ORDERED: PENICILLIN G POTASSIUM 4,000,000 UNIT in 0.9 % SODIUM CHLORIDE 50 ML IV ONE ×3 (01:00→09:00)
[2017-07-06] MEDS: PENICILLIN G POTASSIUM 4,000,000 UNIT in 0.9 % SODIUM CHLORIDE 50 ML IV SCH ×6 (01:04→20:57)
[2017-07-06 05:22] LABS: Basophils # (Auto) 0 K/mcL (0.0-0.3); Basophils % (Auto) 0.2 % (0.0-2.0); Eosinophils # (Auto) 0.5 K/mcL (0.0-0.7); Eosinophils % (Auto) 4.4 % (0.0-7.0); Granulocytes % (Auto) 72.2 % (38.0-78.0); Lymphocytes % (Auto) 19.4 % (15.5-49.0); Mean Cell Volume 88.1 fL (80.0-100.0); Mean Corpuscular HGB Conc 34.2 g/dL (31.0-36.0); Mean Corpuscular Hemoglobin 30.1 pg (26.0-34.0); Monocytes # (Auto) 0.4 K/mcL (0.1-0.9); Monocytes % (Auto) 3.8 % (1.0-12.0); Platelet Count 266 K/mcL (140-440); RBC 3.88 M/mcL (4.00-5.20); Red Cell Distribution Width 13.3 % (11.5-14.5)
[2017-07-06] MEDS: CLINDAMYCIN 900 MG in DEXTROSE 5% IN WATER 50 ML IV SCH ×3 (05:23→21:00)
[2017-07-06] MEDS: 0.9 % SODIUM CHLORIDE 10 ML SYRINGE IV SCH ×3 (05:23→20:58)
[2017-07-06 05:54] LABS: ALT/SGPT 15 U/l (0-40); Albumin 2.5 gm/dL (3.2-5.2); Albumin/Globulin Ratio 0.8 (1.0-2.3); Alkaline Phosphatase 94 U/L (39-117); Bilirubin,Direct < 0.2 mg/dL (0.0-0.3); Blood Urea Nitrogen 4 mg/dl (6-20); Gamma Glutamyl Transpeptidase 15 U/L (5-36); Uric Acid 1.4 mg/dL (2.5-8.0)
[2017-07-06] MEDS ORDERED: PANTOPRAZOLE 40 MG PACKET PO SCH (07:30)
[2017-07-06] MEDS: INSULIN LISPRO 1 UNIT/0.01 ML UNIT SQ SCH ×4 (09:46→20:58)
[2017-07-06] MEDS: INSULIN GLARGINE, HUMAN 1 UNIT/0.01 ML SQ SCH ×2 (09:47→20:59)
[2017-07-06] MEDS: POTASSIUM CHLORIDE 20 MEQ TABLET PO SCH (09:50)
[2017-07-06] MEDS: MAGNESIUM OXIDE 400 MG TABLET PO SCH ×3 (09:50→20:58)
[2017-07-06] MEDS: CHLORHEXIDINE GLUCONATE 1 ML ORAL.SOL SWABMOUTH SCH ×2 (09:50→21:00)
[2017-07-06] MEDS: NEUTRA PHOS 1 PACKET PO SCH ×3 (09:50→20:57)
[2017-07-06] MEDS: HEPARIN 5,000 UNIT/ML VIAL SQ SCH (09:51)
[2017-07-06] MEDS: DOCUSATE SODIUM 100 MG CAPSULE PO SCH ×2 (09:51→20:59)
[2017-07-06] MEDS ORDERED: NALOXONE HCL 0.4 MG/ML VIAL IV PRN (10:54)
[2017-07-06] MEDS ORDERED: DEXTROSE 50% 50 ML VIAL IV PRN ×2 (10:54)
[2017-07-06] MEDS ORDERED: ACETAMINOPHEN 325 MG TABLET PO PRN (10:54)
[2017-07-06] MEDS ORDERED: DEXTROSE 31 GM ORAL.SUSP PO PRN (10:54)
--- NOTE | 2017-07-06 12:50 | Internal Med Progress Note ---
Medical - PN: Subj Patient information: Note initiated : 07/06/17 at 12:44 pm Service Date, if different from initiated Date: [] Patient: Elizabeth To a 21 y/o F admitted on 07/03/17 for Tooth Pain/Diabetic Ketoacidosis, Pneumonia. Interval history: Ms. To is a 21 year old Female with h/o Typ1 DM, on insulin presents to the ER today for dental, pain, not feeling well for the last few days According to the patient she has not been feeling well since Wednesday, her situation worsened on when she slept the whole day she has been having pain in the left lower jaw, fever chills drowsiness fatigue nausea, and since she was getting worse she was brought to the hospital. Mother was at bedside who provided most of the history patient did not answer many questions directly. According to the mother the patient has not been doing well for the last few days, and she has been checking on her daughter on Facebook to see how she was doing the mother has not seen the doctor online since and therefore was concerned and sent a friend to check on her and they found that the patient was not doing well and was therefore brought into the hospital. The patient admits to having some cough that started today, she notes she has nausea but no vomiting, she notes she has symptoms suggestive of UTI. She has not passed any urine yesterday according to the mother. The patient notes that she has been having dental infection for the last 3 months, she has seen providers at the [facility] who would not do a dental extraction because of elevated glucose values. She notes she has been taking insulin regularly but has skipped her insulin over the last 2-3 days. She has never been admitted to the hospital for DKA. Patient is febrile in the ED temperature 101.4, tachycardic with a heart rate of 100 110, respiration is normal, blood pressure stable 101/69 patient saturating 100% on room air. Patient chest x-ray is interpreted as a right apical lobe pneumonia. Mild. Patient's labs show elevated WBC count of 15,000, hemoglobin 13.6, sodium is 129 , potassium 4.0, bicarbonate 20, anion gap is 20, BUN 7 creatinine 0.7 glucose elevated at 376, beta hydroxybutyrate elevated at 2.76, pro calcitonin 0.56, lactic acid is 0.9. UA shows positive WBCs RBCs and a few leukocyte esterase, elevated glucose values. ketones present Patient was admitted to the ICU with a diagnosis of DKA, secondary to noncompliance with insulin as well as infection, dental infection as well as right pneumonia. There is also a possible UTI July 04 The patient seen examined, overnight events noted She had fever and low bp overnight, responded to IV fluids. BP Stable now. Her anion gap closed yesterday and she was transitioned to subcu Lantus, she tolerated the transition well. This morning Remained closed. Patient blood cultures positive for gram-positive cocci 4 out of 4 bottles. Morning patient reported that she admits using IV drug use, last use 1 week ago IV heroin He also admits to use of methamphetamines, urine tox is positive for meth low phosphate and low potassium to be replaced, replace magnesium continue to monitor in the unit. echo ordered , lopez placed add: Blood cultures showed Group A Strep. Antibiotics switched to PCN and Clindamycin. July 05. T max 99 BS high > 200 Spoke with dentist Dae Michel from [facility] who has seen patient 07/02 for tooth ache. Stated that patient has alveolitis: infection of underlying bone and most likely abscess. Recommends tooth extraction, but doesn't need to happen acutely. Abscess tends to drain spontaneously. July 06 Feeling much better. No temp spikes. Despite increasing dose of Lantus, still high BS. Echo: no evidence for vegetations Transfer to med floor - Constitutional Vitals: Vital Signs Temp Pulse Resp BP Pulse Ox 97.7 F 80 18 122/81 99 07/06/17 12:02 07/06/17 12:02 07/06/17 12:02 07/06/17 12:02 07/06/17 07:45 Period Temp Pulse Resp BP Sys/Payne Pulse Ox Last 24 Hr 97.6 F-99.8 F 80-96 13-25 114-127/70-90 95-100 Intake and Output 07/05/17 07/06/17 07/06/17 21:59 05:59 13:59 Intake Total 1537.0909 / 1537.0909 1012 / 1012 658 / 658 Output Total 4900 / 4900 1750 / 1750 475 / 475 Balance -3362.9091 / -3362.9091 -738 / -738 183 / 183 Weight 134 lb Intake & Output: Intake & Output 07/05/17 07/06/17 07/06/17 21:59 05:59 13:59 Intake Total 1537.0909 / 1537.0909 1012 / 1012 658 / 658 Output Total 4900 / 4900 1750 / 1750 475 / 475 Balance -3362.9091 / -3362.9091 -738 / -738 183 / 183 Weight 134 lb Intake: IV 617.0909 / 617.0909 172 / 172 58 / 58 Cleocin 900 mg In Dextrose 5% 56 / 56 in Water 50 ml @ 100 mls/hr IV Q8H [facility] Rx#:[id number] Pfizerpen 4,000,000 Unit In 116 / 116 58 / 58 Sodium Chloride 0.9% 50 ml @ 58 mls/hr IV Q4H [facility] Rx#: [id number] Potassium Phosphate 40 Meq In 509.0909 / 509.0909 Dextrose 5% in Water 500 ml @ 127.273 mls/hr IV ONCE ONE Rx#: [id number] Oral 360 / 360 600 / 600 GI Tube Flush 560 / 560 840 / 840 Output: Urine Catheter Amount 4900 / 4900 Void Amount 1750 / 1750 475 / 475 Other: Meal 2 jellos Peanut butter toast Lunch Percent of Meal Consumed 100% 100% 100% Feeding Ability Independent Independent Stool Size Moderate Small Stool Color Brown Brown Stool Consistency Loose Loose # Bowel Movements 1 1 General appearance: no acute distress - Head Head exam: Present: normal inspection - Respiratory Respiratory exam: Present: normal respiratory exam - Cardiovascular Cardiovascular exam: Present: normal rate and rhythm - GI/Abdominal GI/Abdominal exam: Present: normal bowel sounds Medical - PN: Obj Da - Labs CBC & Chem 7: 07/06/17 03:44 07/07/17 04:15 Labs: Abnormal Lab Results 07/06/17 07/06/17 07/05/17 03:44 03:44 03:35 WBC RBC 3.88 L Hgb 11.7 L Hct 34.1 L Gran % Lymph % (Auto) Gran # Lymph # (Auto) Potassium Carbon Dioxide 21 L BUN 4 L Creatinine 0.5 L Glucose 291 H Uric Acid 1.4 L Calcium 8.3 L Phosphorus Total Protein 5.6 L Albumin 2.5 L Globulin Albumin/Globulin Ratio 0.8 L Triglycerides 411 H Beta-Hydroxybutyrate 0.51 H Ur Amphetamines Screen Mycoplasma pneumon IgM 07/05/17 07/05/17 07/04/17 03:35 03:35 04:00 WBC 11.5 H RBC 3.70 L Hgb 11.2 L Hct 32.9 L Gran % Lymph % (Auto) Gran # 8.4 H Lymph # (Auto) Potassium Carbon Dioxide BUN Creatinine 0.4 L Glucose 281 H Uric Acid 1.5 L Calcium 7.5 L Phosphorus 1.7 L Total Protein 4.7 L Albumin 2.2 L Globulin Albumin/Globulin Ratio 0.9 L Triglycerides 427 H Beta-Hydroxybutyrate 0.71 H Ur Amphetamines Screen Mycoplasma pneumon IgM 07/04/17 07/04/17 07/03/17 04:00 04:00 19:30 WBC RBC 3.65 L Hgb 11.0 L Hct 32.3 L Gran % 78.3 H Lymph % (Auto) 10.7 L Gran # 8.4 H Lymph # (Auto) 1.1 L Potassium Carbon Dioxide 18 L 21 L BUN 5 L 4 L Creatinine 0.5 L Glucose 221 H 184 H Uric Acid 1.7 L Calcium 6.4 L 7.6 L Phosphorus 2.3 L Total Protein 4.3 L Albumin 2.3 L Globulin 2.0 L Albumin/Globulin Ratio Triglycerides Beta-Hydroxybutyrate Ur Amphetamines Screen Mycoplasma pneumon IgM 07/03/17 07/03/17 07/03/17 17:07 13:59 10:45 WBC RBC Hgb Hct Gran % Lymph % (Auto) Gran # Lymph # (Auto) Potassium 3.2 L Carbon Dioxide 20 L BUN 5 L Creatinine 0.5 L Glucose 217 H Uric Acid Calcium 7.2 L Phosphorus 2.6 L Total Protein Albumin Globulin Albumin/Globulin Ratio Triglycerides Beta-Hydroxybutyrate Ur Amphetamines Screen Suspect positive A Mycoplasma pneumon IgM 07/03/17 10:45 WBC RBC Hgb Hct Gran % Lymph % (Auto) Gran # Lymph # (Auto) Potassium Carbon Dioxide BUN Creatinine Glucose Uric Acid Calcium Phosphorus Total Protein Albumin Globulin Albumin/Globulin Ratio Triglycerides Beta-Hydroxybutyrate Ur Amphetamines Screen Mycoplasma pneumon IgM Positive A Meds: Medications Acetaminophen (Tylenol) 650 mg PO Q4-6HP PRN PRN Reason: PAIN/FEVER > 101 Chlorhexidine Gluconate (Peridex) 15 ml SWABMOUTH BID [facility] Dextrose (Dextrose 50%) 25 ml IV UD PRN PRN Reason: Hypoglycemia Dextrose (Dextrose 50%) 0 ml IV UD PRN PRN Reason: Hypoglycemia Diagnostic Test (Pha) (Accu-Chek) 1 each FS ACHS [facility] Last Admin: 07/06/17 12:35 Dose: 1 each Docusate Sodium (Colace) 100 mg PO BID [facility] Glucose (Insta-Glucose) 15 gm PO PRN PRN PRN Reason: Hypoglycemia Clindamycin Phosphate 900 mg/ (Dextrose) 56 mls @ 100 mls/hr IV Q8H [facility] Penicillin G Potassium 4,000, (000 unit/ Sodium Chloride) 58 mls @ 58 mls/hr IV Q4H [facility] Insulin Glargine (Lantus) 30 unit SQ BID [facility] Insulin Human Lispro (Humalog) 0 unit SQ ACHS [facility] PRN Reason: Protocol Last Admin: 07/06/17 12:34 Dose: 8 unit Magnesium Oxide (Magnesium Oxide) 400 mg PO TID [facility] Naloxone HCl (Narcan) 0.1 mg IV Q2MIN PRN PRN Reason: Opiate Reversal Ondansetron HCl (Zofran) 4 mg IV Q4-6HP PRN PRN Reason: Nausea And Vomiting Pantoprazole Sodium (Protonix) 40 mg PO QAMAC [facility] Potassium Chloride (Kdur) 20 meq PO QAMCC [facility] Potassium/Phosphorus/Sodium (Neutra Phos) 1 packet PO TID [facility] Sodium Chloride (Saline Flush) 10 ml IV Q8 [facility] - ABG Interpretation ABG results: 07/03/17 13:49 VBG pH 7.39 Medical - PN: A/P - Time Spent With Patient Total time spent is greater than 50% in coordination of care (as documented) at patient's floor/unit and/or counseling patient: - Narrative A/P Narrative: A/P Diabetic Ketoacidosis- resolved, anion gap closed, continue lantus and ssi, pt tolerating po diet well Pneumonia: Vanco, ertapenem, Azithromycin emprically. Switched antibiotics 07/04 Gram-positive bacteremia-patient has a history of IV drug abuse, given high- grade bacteremia and echo look for endocarditis, wait for the treatment to clear before placing the line. Patient will likely need IV antibiotics for 4-6 weeks. Blood cultures: Group A strep. 07/04 switched to Clindamycin and PCN Dental Abscess: Should be covered with antibiotics used above. Eventually need dental extraction. Case d/w dentist Dae Michel at [facility] who saw patient 07/02 : no urgent extraction indicated. Type 1 Diabetes: Back to Lantus sliding scale insulin Urinary Tract Infection:Cultures: mixed yaw and yeast. Will discontinue lopez cath Uwphvwiddzpzkffk-gsgetnnikwt-lopsibaahskbtq: Replace Hypotension-resolved IVD use (meth and heroine). HIV and hepatitis panel: negative Malnourishment with BMI of 18 DVT hep sq Diet consistent carb diet. Dietary consultation to help with malnourishment and BS control Medical - PN: Qual - VTE Deep Vein Thrombosis/Pulmonary Embolism Present on Admission: No
[2017-07-06] MEDS: ONDANSETRON 4 MG/2 ML VIAL IV PRN (13:41)
[2017-07-07] MEDS: PENICILLIN G POTASSIUM 4,000,000 UNIT in 0.9 % SODIUM CHLORIDE 50 ML IV SCH ×6 (00:20→21:08)
[2017-07-07] MEDS: 0.9 % SODIUM CHLORIDE 10 ML SYRINGE IV SCH ×3 (05:58→22:02)
[2017-07-07 05:59] LABS: ALT/SGPT 21 U/l (0-40); Albumin 2.9 gm/dL (3.2-5.2); Alkaline Phosphatase 109 U/L (39-117); Bilirubin,Direct < 0.2 mg/dL (0.0-0.3); Blood Urea Nitrogen 8 mg/dl (6-20); Gamma Glutamyl Transpeptidase 17 U/L (5-36); Uric Acid 1.5 mg/dL (2.5-8.0)
[2017-07-07] MEDS: CLINDAMYCIN 900 MG in DEXTROSE 5% IN WATER 50 ML IV SCH ×3 (05:59→22:54)
[2017-07-07] MEDS: CHLORHEXIDINE GLUCONATE 1 ML ORAL.SOL SWABMOUTH SCH ×2 (08:15→21:10)
[2017-07-07] MEDS: PANTOPRAZOLE 40 MG PACKET PO SCH (08:51)
[2017-07-07] MEDS: MAGNESIUM OXIDE 400 MG TABLET PO SCH ×3 (08:51→21:09)
[2017-07-07] MEDS: INSULIN GLARGINE, HUMAN 1 UNIT/0.01 ML SQ SCH ×2 (08:51→21:09)
[2017-07-07] MEDS: POTASSIUM CHLORIDE 20 MEQ TABLET PO SCH (08:51)
[2017-07-07] MEDS: NEUTRA PHOS 1 PACKET PO SCH ×3 (08:51→21:09)
[2017-07-07] MEDS: INSULIN LISPRO 1 UNIT/0.01 ML UNIT SQ SCH ×4 (08:52→21:08)
[2017-07-07] MEDS: ONDANSETRON 4 MG/2 ML VIAL IV PRN (08:52)
[2017-07-07] MEDS: DOCUSATE SODIUM 100 MG CAPSULE PO SCH ×2 (09:02→21:09)
[2017-07-07] MEDS ORDERED: DEXTROSE 50% 50 ML VIAL IV PRN (14:45)
--- NOTE | 2017-07-07 23:33 | Internal Med Progress Note ---
Medical - PN: Subj Patient information: Note initiated : 07/07/17 at 11:27 pm Service Date, if different from initiated Date: [] Patient: Elizabeth To a 21 y/o F admitted on 07/03/17 for Tooth Pain/Diabetic Ketoacidosis, Pneumonia. Interval history: Ms. To is a 21 year old Female with h/o Typ1 DM, on insulin presents to the ER today for dental, pain, not feeling well for the last few days According to the patient she has not been feeling well since Wednesday, her situation worsened on when she slept the whole day she has been having pain in the left lower jaw, fever chills drowsiness fatigue nausea, and since she was getting worse she was brought to the hospital. Mother was at bedside who provided most of the history patient did not answer many questions directly. According to the mother the patient has not been doing well for the last few days, and she has been checking on her daughter on Facebook to see how she was doing the mother has not seen the doctor online since and therefore was concerned and sent a friend to check on her and they found that the patient was not doing well and was therefore brought into the hospital. The patient admits to having some cough that started today, she notes she has nausea but no vomiting, she notes she has symptoms suggestive of UTI. She has not passed any urine yesterday according to the mother. The patient notes that she has been having dental infection for the last 3 months, she has seen providers at the [facility] who would not do a dental extraction because of elevated glucose values. She notes she has been taking insulin regularly but has skipped her insulin over the last 2-3 days. She has never been admitted to the hospital for DKA. Patient is febrile in the ED temperature 101.4, tachycardic with a heart rate of 100 110, respiration is normal, blood pressure stable 101/69 patient saturating 100% on room air. Patient chest x-ray is interpreted as a right apical lobe pneumonia. Mild. Patient's labs show elevated WBC count of 15,000, hemoglobin 13.6, sodium is 129 , potassium 4.0, bicarbonate 20, anion gap is 20, BUN 7 creatinine 0.7 glucose elevated at 376, beta hydroxybutyrate elevated at 2.76, pro calcitonin 0.56, lactic acid is 0.9. UA shows positive WBCs RBCs and a few leukocyte esterase, elevated glucose values. ketones present Patient was admitted to the ICU with a diagnosis of DKA, secondary to noncompliance with insulin as well as infection, dental infection as well as right pneumonia. There is also a possible UTI July 04 The patient seen examined, overnight events noted She had fever and low bp overnight, responded to IV fluids. BP Stable now. Her anion gap closed yesterday and she was transitioned to subcu Lantus, she tolerated the transition well. This morning Remained closed. Patient blood cultures positive for gram-positive cocci 4 out of 4 bottles. Morning patient reported that she admits using IV drug use, last use 1 week ago IV heroin He also admits to use of methamphetamines, urine tox is positive for meth low phosphate and low potassium to be replaced, replace magnesium continue to monitor in the unit. echo ordered , lopez placed add: Blood cultures showed Group A Strep. Antibiotics switched to PCN and Clindamycin. July 05. T max 99 BS high > 200 Spoke with dentist Dae Michel from [facility] who has seen patient 07/02 for tooth ache. Stated that patient has alveolitis: infection of underlying bone and most likely abscess. Recommends tooth extraction, but doesn't need to happen acutely. Abscess tends to drain spontaneously. July 06 Feeling much better. No temp spikes. Despite increasing dose of Lantus, still high BS. Echo: no evidence for vegetations Transfer to med floor July 07 Doing well. Walking in [address]. Minimal tooth pain No fever. BS remain high despite increasing dose Lantus and Lispro ss Discussed case with [facility], infectious disease. Dr Reyes ([place]) is not longer available. Recommends total of 14 days antibiotics. Will await repeat blood cultures done today. If negative will consider to continue simplified IV regimen as outpatient in clinic. Discussed with patient. She will live with her parents. States she is motivated to go into outpatient rehab program. - Constitutional Vitals: Vital Signs Temp Pulse Resp BP Pulse Ox 98.6 F 111 H 18 120/78 97 07/07/17 20:00 07/07/17 20:00 07/07/17 20:00 07/07/17 20:00 07/07/17 20:00 Period Temp Pulse Resp BP Sys/Payne Pulse Ox Last 24 Hr 98.3 F-98.9 F 75-111 16-18 110-120/72-82 96-97 Intake and Output 07/07/17 07/07/17 07/08/17 13:59 21:59 05:59 Intake Total 172 / 172 532 / 532 58 / 58 Output Total Balance 172 / 172 531 / 531 58 / 58 Intake & Output: Intake & Output 07/07/17 07/07/17 07/08/17 13:59 21:59 05:59 Intake Total 172 / 172 532 / 532 58 / 58 Output Total Balance 172 / 172 531 / 531 58 / 58 Intake: IV 172 / 172 172 / 172 58 / 58 Cleocin 900 mg In Dextrose 5% 56 / 56 56 / 56 in Water 50 ml @ 100 mls/hr IV Q8H [facility] Rx#:[id number] Pfizerpen 4,000,000 Unit In 116 / 116 116 / 116 58 / 58 Sodium Chloride 0.9% 50 ml @ 58 mls/hr IV Q4H [facility] Rx#: [id number] Oral 360 / 360 Output: Void Amount Other: Meal half sandwhich PB [place] Percent of Meal Consumed 100% 100% Feeding Ability Independent Independent General appearance: no acute distress - Respiratory Respiratory exam: Present: normal respiratory exam - Cardiovascular Cardiovascular exam: Present: normal rate and rhythm - GI/Abdominal GI/Abdominal exam: Present: normal bowel sounds, soft - Extremities Exam Extremities exam: Present: normal inspection Medical - PN: Obj Da - Labs CBC & Chem 7: 07/06/17 03:44 07/07/17 04:15 Labs: Abnormal Lab Results 07/07/17 07/06/17 07/06/17 04:15 03:44 03:44 WBC RBC 3.88 L Hgb 11.7 L Hct 34.1 L Gran # Carbon Dioxide 21 L BUN 4 L Creatinine 0.5 L 0.5 L Glucose 375 H 291 H Uric Acid 1.5 L 1.4 L Calcium 8.3 L Phosphorus Total Protein 5.6 L Albumin 2.9 L 2.5 L Albumin/Globulin Ratio 0.8 L Triglycerides 233 H 411 H Beta-Hydroxybutyrate 07/05/17 07/05/17 07/05/17 03:35 03:35 03:35 WBC 11.5 H RBC 3.70 L Hgb 11.2 L Hct 32.9 L Gran # 8.4 H Carbon Dioxide BUN Creatinine 0.4 L Glucose 281 H Uric Acid 1.5 L Calcium 7.5 L Phosphorus 1.7 L Total Protein 4.7 L Albumin 2.2 L Albumin/Globulin Ratio 0.9 L Triglycerides 427 H Beta-Hydroxybutyrate 0.51 H Meds: Medications Acetaminophen (Tylenol) 650 mg PO Q4-6HP PRN PRN Reason: PAIN/FEVER > 101 Chlorhexidine Gluconate (Peridex) 15 ml [place] BID [facility] Last Admin: 07/07/17 21:10 Dose: 15 ml Dextrose (Dextrose 50%) 25 ml IV UD PRN PRN Reason: Hypoglycemia Dextrose (Dextrose 50%) 0 ml IV UD PRN PRN Reason: Hypoglycemia Diagnostic Test (Pha) (Accu-Chek) 1 each FS [facility] Last Admin: 07/07/17 21:11 Dose: 1 each Docusate Sodium (Colace) 100 mg PO BID [facility] Last Admin: 07/07/17 21:09 Dose: 100 mg Glucose (Insta-Glucose) 15 gm PO PRN PRN PRN Reason: Hypoglycemia Clindamycin Phosphate 900 mg/ (Dextrose) 56 mls @ 100 mls/hr IV Q8H [facility] Last Admin: 07/07/17 22:54 Dose: 100 mls/hr Penicillin G Potassium 4,000, (000 unit/ Sodium Chloride) 58 mls @ 58 mls/hr IV Q4H [facility] Last Infusion: 07/07/17 22:10 Dose: Infused Insulin Glargine (Lantus) 40 unit SQ BID [facility] Last Admin: 07/07/17 21:09 Dose: 40 unit Insulin Human Lispro (Humalog) 0 unit SQ [facility] PRN Reason: Protocol Last Admin: 07/07/17 21:08 Dose: 9 unit Magnesium Oxide (Magnesium Oxide) 400 mg PO TID [facility] Last Admin: 07/07/17 21:09 Dose: 400 mg Naloxone HCl (Narcan) 0.1 mg IV Q2MIN PRN PRN Reason: Opiate Reversal Ondansetron HCl (Zofran) 4 mg IV Q4-6HP PRN PRN Reason: Nausea And Vomiting Last Admin: 07/07/17 08:52 Dose: 4 mg Pantoprazole Sodium (Protonix) 40 mg PO QAMAC [facility] Last Admin: 07/07/17 08:51 Dose: 40 mg Potassium Chloride (Kdur) 20 meq PO QAMCC [facility] Last Admin: 07/07/17 08:51 Dose: 20 meq Potassium/Phosphorus/Sodium (Neutra Phos) 1 packet PO TID [facility] Last Admin: 07/07/17 21:09 Dose: 1 packet Sodium Chloride (Saline Flush) 10 ml IV Q8 [facility] Last Admin: 07/07/17 22:02 Dose: 10 ml - ABG Interpretation ABG results: 07/03/17 13:49 VBG pH 7.39 Medical - PN: A/P - Time Spent With Patient Total time spent is greater than 50% in coordination of care (as documented) at patient's floor/unit and/or counseling patient: 15 - 24 minutes - Narrative A/P Narrative: A/P Diabetic Ketoacidosis- resolved, anion gap closed, continue lantus and ssi, pt tolerating po diet well Pneumonia: Vanco, ertapenem, Azithromycin emprically. Switched antibiotics 07/04 Gram-positive bacteremia-patient has a history of IV drug abuse, given high- grade bacteremia and echo look for endocarditis, wait for the treatment to clear before placing the line. Patient will likely need IV antibiotics for 4-6 weeks. Blood cultures: Group A strep. 07/04 switched to Clindamycin and PCN Dental Abscess: Should be covered with antibiotics used above. Eventually need dental extraction. Case d/w dentist Dae Michel at [facility] who saw patient 07/02 : no urgent extraction indicated. Type 1 Diabetes: Back to Lantus sliding scale insulin Urinary Tract Infection:Cultures: mixed yaw and yeast. Will discontinue lopez cath Cstxyyeeoepgeacg-jpelwrqwuca-wdavmouboezyxa: Replace Hypotension-resolved IVD use (meth and heroine). HIV and hepatitis panel: negative Malnourishment with BMI of 18 DVT hep sq Diet consistent carb diet. Dietary consultation to help with malnourishment and BS control Medical - PN: Qual - VTE Deep Vein Thrombosis/Pulmonary Embolism Present on Admission: No
[2017-07-08] MEDS: PENICILLIN G POTASSIUM 4,000,000 UNIT in 0.9 % SODIUM CHLORIDE 50 ML IV SCH ×4 (01:05→13:18)
[2017-07-08] MEDS: ONDANSETRON 4 MG/2 ML VIAL IV PRN (05:17)
[2017-07-08] MEDS: CLINDAMYCIN 900 MG in DEXTROSE 5% IN WATER 50 ML IV SCH (05:51)
[2017-07-08] MEDS: 0.9 % SODIUM CHLORIDE 10 ML SYRINGE IV SCH ×3 (05:52→21:47)
[2017-07-08] MEDS: INSULIN LISPRO 1 UNIT/0.01 ML UNIT SQ SCH ×6 (08:07→21:48)
[2017-07-08] MEDS: PANTOPRAZOLE 40 MG PACKET PO SCH (08:07)
[2017-07-08] MEDS: POTASSIUM CHLORIDE 20 MEQ TABLET PO SCH (08:08)
[2017-07-08] MEDS: MAGNESIUM OXIDE 400 MG TABLET PO SCH ×3 (08:08→21:48)
[2017-07-08] MEDS: DOCUSATE SODIUM 100 MG CAPSULE PO SCH ×2 (08:08→21:49)
[2017-07-08] MEDS: INSULIN GLARGINE, HUMAN 1 UNIT/0.01 ML SQ SCH ×2 (08:08→21:49)
[2017-07-08] MEDS: CHLORHEXIDINE GLUCONATE 1 ML ORAL.SOL SWABMOUTH SCH ×2 (09:25→21:50)
[2017-07-08] MEDS: NEUTRA PHOS 1 PACKET PO SCH ×3 (09:25→21:48)
--- NOTE | 2017-07-08 13:59 | Internal Med Progress Note ---
Medical - PN: Subj Patient information: Note initiated : 07/08/17 at 1:51 pm Service Date, if different from initiated Date: [] Patient: Elizabeth To a 21 y/o F admitted on 07/03/17 for Tooth Pain/Diabetic Ketoacidosis, Pneumonia. Chief Complaint: [] Interval history: Ms. To is a 21 year old Female with h/o Typ1 DM, on insulin presents to the ER today for dental, pain, not feeling well for the last few days According to the patient she has not been feeling well since Wednesday, her situation worsened on when she slept the whole day she has been having pain in the left lower jaw, fever chills drowsiness fatigue nausea, and since she was getting worse she was brought to the hospital. Mother was at bedside who provided most of the history patient did not answer many questions directly. According to the mother the patient has not been doing well for the last few days, and she has been checking on her daughter on Facebook to see how she was doing the mother has not seen the doctor online since and therefore was concerned and sent a friend to check on her and they found that the patient was not doing well and was therefore brought into the hospital. The patient admits to having some cough that started today, she notes she has nausea but no vomiting, she notes she has symptoms suggestive of UTI. She has not passed any urine yesterday according to the mother. The patient notes that she has been having dental infection for the last 3 months, she has seen providers at the [facility] who would not do a dental extraction because of elevated glucose values. She notes she has been taking insulin regularly but has skipped her insulin over the last 2-3 days. She has never been admitted to the hospital for DKA. Patient is febrile in the ED temperature 101.4, tachycardic with a heart rate of 100 110, respiration is normal, blood pressure stable 101/69 patient saturating 100% on room air. Patient chest x-ray is interpreted as a right apical lobe pneumonia. Mild. Patient's labs show elevated WBC count of 15,000, hemoglobin 13.6, sodium is 129 , potassium 4.0, bicarbonate 20, anion gap is 20, BUN 7 creatinine 0.7 glucose elevated at 376, beta hydroxybutyrate elevated at 2.76, pro calcitonin 0.56, lactic acid is 0.9. UA shows positive WBCs RBCs and a few leukocyte esterase, elevated glucose values. ketones present Patient was admitted to the ICU with a diagnosis of DKA, secondary to noncompliance with insulin as well as infection, dental infection as well as right pneumonia. There is also a possible UTI July 04 The patient seen examined, overnight events noted She had fever and low bp overnight, responded to IV fluids. BP Stable now. Her anion gap closed yesterday and she was transitioned to subcu Lantus, she tolerated the transition well. This morning Remained closed. Patient blood cultures positive for gram-positive cocci 4 out of 4 bottles. Morning patient reported that she admits using IV drug use, last use 1 week ago IV heroin He also admits to use of methamphetamines, urine tox is positive for meth low phosphate and low potassium to be replaced, replace magnesium continue to monitor in the unit. echo ordered , lopez placed add: Blood cultures showed Group A Strep. Antibiotics switched to PCN and Clindamycin. July 05. T max 99 BS high > 200 Spoke with dentist Dae Michel from [facility] who has seen patient 07/02 for tooth ache. Stated that patient has alveolitis: infection of underlying bone and most likely abscess. Recommends tooth extraction, but doesn't need to happen acutely. Abscess tends to drain spontaneously. July 06 Feeling much better. No temp spikes. Despite increasing dose of Lantus, still high BS. Echo: no evidence for vegetations Transfer to med floor July 07 Doing well. Walking in [address]. Minimal tooth pain No fever. BS remain high despite increasing dose Lantus and Lispro ss Discussed case with Jackson PALOMINO, infectious disease. Dr Reyes ([place]) is not longer available. Recommends total of 14 days antibiotics. Will await repeat blood cultures done today. If negative will consider to continue simplified IV regimen as outpatient in clinic. Discussed with patient. She will live with her parents. States she is motivated to go into outpatient rehab program. July 08 Doing well. BS still elevated on Lantus. Will add ACHS Lispro Diabetic education Repeat Blood C/S so far negative Plan as d/w ID (Jackson Child, [place]) today: Ceftriaxone 2 gm daily IM or IV Will FU with pt in office Wed (07/13) at 10 am............need to confirm - Constitutional Vitals: Vital Signs Temp Pulse Resp BP Pulse Ox 97.9 F 89 16 115/79 95 07/08/17 12:00 07/08/17 12:00 07/08/17 12:00 07/08/17 12:00 07/08/17 12:00 Period Temp Pulse Resp BP Sys/Payne Pulse Ox Last 24 Hr 97.6 F-98.9 F 80-111 16-18 104-126/68-82 95-98 Intake and Output 07/07/17 07/08/17 07/08/17 21:59 05:59 13:59 Intake Total 532 / 532 172 / 172 652 / 652 Output Total Balance 531 / 531 172 / 172 652 / 652 Weight 124 lb 8 oz Intake & Output: Intake & Output 07/07/17 07/08/17 07/08/17 21:59 05:59 13:59 Intake Total 532 / 532 172 / 172 652 / 652 Output Total Balance 531 / 531 172 / 172 652 / 652 Weight 124 lb 8 oz Intake: IV 172 / 172 172 / 172 172 / 172 Cleocin 900 mg In Dextrose 5% 56 / 56 56 / 56 56 / 56 in Water 50 ml @ 100 mls/hr IV Q8H [facility] Rx#:[id number] Pfizerpen 4,000,000 Unit In 116 / 116 116 / 116 116 / 116 Sodium Chloride 0.9% 50 ml @ 58 mls/hr IV Q4H [facility] Rx#: [id number] Oral 360 / 360 480 / 480 Output: Void Amount Other: Meal half sandwhich PB [place] [employer] Percent of Meal Consumed 100% 100% 100% Feeding Ability Independent Independent Independent # Voids 1 General appearance: thin - Head Head exam: Present: normal inspection - Respiratory Respiratory exam: Present: normal respiratory exam - Cardiovascular Cardiovascular exam: Present: normal rate and rhythm - GI/Abdominal GI/Abdominal exam: Present: normal bowel sounds, soft Medical - PN: Obj Da - Labs CBC & Chem 7: 07/06/17 03:44 07/07/17 04:15 Labs: Abnormal Lab Results 07/07/17 07/06/17 07/06/17 04:15 03:44 03:44 RBC 3.88 L Hgb 11.7 L Hct 34.1 L Carbon Dioxide 21 L BUN 4 L Creatinine 0.5 L 0.5 L Glucose 375 H 291 H Uric Acid 1.5 L 1.4 L Calcium 8.3 L Total Protein 5.6 L Albumin 2.9 L 2.5 L Albumin/Globulin Ratio 0.8 L Triglycerides 233 H 411 H Meds: Medications Acetaminophen (Tylenol) 650 mg PO Q4-6HP PRN PRN Reason: PAIN/FEVER > 101 Chlorhexidine Gluconate (Peridex) 15 ml SW[place]TH BID [facility] Last Admin: 07/08/17 09:25 Dose: Not Given Dextrose (Dextrose 50%) 25 ml IV UD PRN PRN Reason: Hypoglycemia Dextrose (Dextrose 50%) 0 ml IV UD PRN PRN Reason: Hypoglycemia Diagnostic Test (Pha) (Accu-Chek) 1 each FS [facility] Last Admin: 07/08/17 11:25 Dose: 1 each Docusate Sodium (Colace) 100 mg PO BID [facility] Last Admin: 07/08/17 08:08 Dose: Not Given Glucose (Insta-Glucose) 15 gm PO PRN PRN PRN Reason: Hypoglycemia Clindamycin Phosphate 900 mg/ (Dextrose) 56 mls @ 100 mls/hr IV Q8H [facility] Last Infusion: 07/08/17 06:25 Dose: Infused Penicillin G Potassium 4,000, (000 unit/ Sodium Chloride) 58 mls @ 58 mls/hr IV Q4H [facility] Last Admin: 07/08/17 13:18 Dose: 58 mls/hr Insulin Glargine (Lantus) 40 unit SQ BID [facility] Last Admin: 07/08/17 08:08 Dose: 40 unit Insulin Human Lispro (Humalog) 0 unit SQ [facility] PRN Reason: Protocol Last Admin: 07/08/17 12:16 Dose: 12 unit Insulin Human Lispro (Humalog) 6 unit SQ [facility] Magnesium Oxide (Magnesium Oxide) 400 mg PO TID [facility] Last Admin: 07/08/17 08:08 Dose: 400 mg Naloxone HCl (Narcan) 0.1 mg IV Q2MIN PRN PRN Reason: Opiate Reversal Ondansetron HCl (Zofran) 4 mg IV Q4-6HP PRN PRN Reason: Nausea And Vomiting Last Admin: 07/08/17 05:17 Dose: 4 mg Pantoprazole Sodium (Protonix) 40 mg PO QAMAC [facility] Last Admin: 07/08/17 08:07 Dose: 40 mg Potassium Chloride (Kdur) 20 meq PO QAMCC [facility] Last Admin: 07/08/17 08:08 Dose: 20 meq Potassium/Phosphorus/Sodium (Neutra Phos) 1 packet PO TID [facility] Last Admin: 07/08/17 09:25 Dose: Not Given Sodium Chloride (Saline Flush) 10 ml IV Q8 [facility] Last Admin: 07/08/17 13:21 Dose: 10 ml - ABG Interpretation ABG results: 07/03/17 13:49 VBG pH 7.39 Medical - PN: A/P - Time Spent With Patient Total time spent is greater than 50% in coordination of care (as documented) at patient's floor/unit and/or counseling patient: 15 - 24 minutes - Narrative A/P Narrative: A/P Diabetic Ketoacidosis- resolved, anion gap closed, continue lantus and ssi, pt tolerating po diet well Pneumonia: Vanco, ertapenem, Azithromycin emprically. Switched antibiotics 07/04 to [place] and PCN Gram-positive bacteremia-patient has a history of IV drug abuse, given high- grade bacteremia and echo look for endocarditis, wait for the treatment to clear before placing the line. Patient will likely need IV antibiotics for 4-6 weeks. Blood cultures: Group A strep. 07/04 switched to Clindamycin and PCN Dental Abscess: Should be covered with antibiotics used above. Eventually need dental extraction. Case d/w dentist Dae Michel at [facility] who saw patient 07/02 : no urgent extraction indicated. Type 1 Diabetes: Back to Lantus sliding scale insulin Urinary Tract Infection:Cultures: mixed yaw and yeast. Will discontinue lopez cath Ufajrntvyyfifcpn-lvnlefodzmq-zaljgbrwxfuppf: Replace Hypotension-resolved IVD use (meth and heroine). HIV and hepatitis panel: negative Malnourishment with BMI of 18 DVT hep sq Diet consistent carb diet. Dietary consultation to help with malnourishment and BS control PLAN: Add AC Lispro to better control DM Check lytes in am Switch to Ceftriaxone daily IV/IM, continue as outpt with visit to hospital Discharge home in am FU with Jackson Child (ID) on 07/13 Medical - PN: Qual - VTE Deep Vein Thrombosis/Pulmonary Embolism Present on Admission: No
[2017-07-08] MEDS: cefTRIAXone 2 GM VIAL IV SCH (14:54)
[2017-07-08] MEDS ORDERED: NICOTINE 7 MG PATCH TOPICAL ONE (21:59)
[2017-07-08] MEDS ORDERED: GABAPENTIN 100 MG CAPSULE PO ONE (22:12)
[2017-07-09 05:32] LABS: Basophils # (Auto) 0 K/mcL (0.0-0.3); Basophils % (Auto) 0.3 % (0.0-2.0); Eosinophils # (Auto) 0.6 K/mcL (0.0-0.7); Eosinophils % (Auto) 5.2 % (0.0-7.0); Granulocytes % (Auto) 66.8 % (38.0-78.0); Lymphocytes # (Auto) 2.5 K/mcL (1.5-4.8); Lymphocytes % (Auto) 23.2 % (15.5-49.0); Mean Cell Volume 88.3 fL (80.0-100.0); Mean Corpuscular HGB Conc 34.3 g/dL (31.0-36.0); Mean Corpuscular Hemoglobin 30.3 pg (26.0-34.0); Monocytes # (Auto) 0.5 K/mcL (0.1-0.9); Monocytes % (Auto) 4.5 % (1.0-12.0); Platelet Count 423 K/mcL (140-440); RBC 3.98 M/mcL (4.00-5.20); Red Cell Distribution Width 13.2 % (11.5-14.5)
[2017-07-09] MEDS: 0.9 % SODIUM CHLORIDE 10 ML SYRINGE IV SCH (06:01)
[2017-07-09 06:10] LABS: ALT/SGPT 27 U/l (0-40); Albumin 3.2 gm/dL (3.2-5.2); Albumin/Globulin Ratio 0.9 (1.0-2.3); Alkaline Phosphatase 114 U/L (39-117); Bilirubin,Direct < 0.2 mg/dL (0.0-0.3); Blood Urea Nitrogen 18 mg/dl (6-20); Gamma Glutamyl Transpeptidase 19 U/L (5-36); Uric Acid 2.5 mg/dL (2.5-8.0)
[2017-07-09] MEDS: PANTOPRAZOLE 40 MG PACKET PO SCH (08:11)
[2017-07-09] MEDS: POTASSIUM CHLORIDE 20 MEQ TABLET PO SCH (08:11)
[2017-07-09] MEDS: ONDANSETRON 4 MG/2 ML VIAL IV PRN (08:24)
[2017-07-09] MEDS: INSULIN LISPRO 1 UNIT/0.01 ML UNIT SQ SCH ×4 (08:25→11:40)
[2017-07-09] MEDS ORDERED: GABAPENTIN 100 MG CAPSULE PO SCH (09:00)
[2017-07-09] MEDS: INSULIN GLARGINE, HUMAN 1 UNIT/0.01 ML SQ SCH (10:34)
[2017-07-09] MEDS: NEUTRA PHOS 1 PACKET PO SCH (10:35)
[2017-07-09] MEDS: CHLORHEXIDINE GLUCONATE 1 ML ORAL.SOL SWABMOUTH SCH (10:35)
[2017-07-09] MEDS: MAGNESIUM OXIDE 400 MG TABLET PO SCH (10:35)
[2017-07-09] MEDS: cefTRIAXone 2 GM VIAL IV SCH (10:36)
[2017-07-09] MEDS: DOCUSATE SODIUM 100 MG CAPSULE PO SCH (10:36)
--- NOTE | 2017-07-09 12:11 | Discharge Summary ---
Medical - DS: Prov Patient information: Note initiated : 07/09/17 at 12:09 pm Service Date, if different from initiated Date: [] Patient: Elizabeth To 21 y/o F admitted on 07/03/17 for Tooth Pain/Diabetic Ketoacidosis, Pneumonia. Date of admission: 07/03/17 14:35 Discharge date: 07/09/17 Primary care physician: Daniella Adams Consults: 07/03/17 12:58 Consult to Physician [CONS] Stat Comment: Consulting Provider: Lisa Simmons Reason For Exam: Physician to Consult Medical - DS: Meds - Discharge Medications Prescriptions: RX: Accu-Chek 1 each FS ACHS #90 strip RX: cefTRIAXone [Rocephin] 2 gm IV DAILY #10 vial RX: Gabapentin [Neurontin] 100 mg PO BID #30 capsule RX: Glucagon HCl 1 mg SUB-Q PRN PRN #3 vial PRN Reason: Hypoglycemia Active and Home Medications: Home Medications Insulin Glargine, Human [Lantus] 8 unit SQ HS 04/30/17 [History Confirmed Last Taken Unknown] Insulin Lispro [Humalog] 1 unit SQ Q6 04/30/17 [History Confirmed 07/03/17 Last Taken Unknown] Medical - DS: Hosp Hospital course: Interval history: Ms. To is a 21 year old Female with h/o Typ1 DM, on insulin presents to the ER today for dental, pain, not feeling well for the last few days According to the patient she has not been feeling well since Wednesday, her situation worsened on when she slept the whole day she has been having pain in the left lower jaw, fever chills drowsiness fatigue nausea, and since she was getting worse she was brought to the hospital. Mother was at bedside who provided most of the history patient did not answer many questions directly. According to the mother the patient has not been doing well for the last few days, and she has been checking on her daughter on Facebook to see how she was doing the mother has not seen the doctor online since and therefore was concerned and sent a friend to check on her and they found that the patient was not doing well and was therefore brought into the hospital. The patient admits to having some cough that started today, she notes she has nausea but no vomiting, she notes she has symptoms suggestive of UTI. She has not passed any urine yesterday according to the mother. The patient notes that she has been having dental infection for the last 3 months, she has seen providers at the [facility] who would not do a dental extraction because of elevated glucose values. She notes she has been taking insulin regularly but has skipped her insulin over the last 2-3 days. She has never been admitted to the hospital for DKA. Patient is febrile in the ED temperature 101.4, tachycardic with a heart rate of 100 110, respiration is normal, blood pressure stable 101/69 patient saturating 100% on room air. Patient chest x-ray is interpreted as a right apical lobe pneumonia. Mild. Patient's labs show elevated WBC count of 15,000, hemoglobin 13.6, sodium is 129 , potassium 4.0, bicarbonate 20, anion gap is 20, BUN 7 creatinine 0.7 glucose elevated at 376, beta hydroxybutyrate elevated at 2.76, pro calcitonin 0.56, lactic acid is 0.9. UA shows positive WBCs RBCs and a few leukocyte esterase, elevated glucose values. ketones present Patient was admitted to the ICU with a diagnosis of DKA, secondary to noncompliance with insulin as well as infection, dental infection as well as right pneumonia. There is also a possible UTI July 04 The patient seen examined, overnight events noted She had fever and low bp overnight, responded to IV fluids. BP Stable now. Her anion gap closed yesterday and she was transitioned to subcu Lantus, she tolerated the transition well. This morning Remained closed. Patient blood cultures positive for gram-positive cocci 4 out of 4 bottles. Morning patient reported that she admits using IV drug use, last use 1 week ago IV heroin He also admits to use of methamphetamines, urine tox is positive for meth low phosphate and low potassium to be replaced, replace magnesium continue to monitor in the unit. echo ordered , lopez placed add: Blood cultures showed Group A Strep. Antibiotics switched to PCN and Clindamycin. July 05. T max 99 BS high > 200 Spoke with dentist Dae Michel from [facility] who has seen patient 07/02 for tooth ache. Stated that patient has alveolitis: infection of underlying bone and most likely abscess. Recommends tooth extraction, but doesn't need to happen acutely. Abscess tends to drain spontaneously. March 27 Feeling much better. No temp spikes. Despite increasing dose of Lantus, still high BS. Echo: no evidence for vegetations Transfer to med floor July 07 Doing well. Walking in [address]. Minimal tooth pain No fever. BS remain high despite increasing dose Lantus and Lispro ss Discussed case with Jackson PALOMINO, infectious disease. Dr Reyes ([place]) is not longer available. Recommends total of 14 days antibiotics. Will await repeat blood cultures done today. If negative will consider to continue simplified IV regimen as outpatient in clinic. Discussed with patient. She will live with her parents. States she is motivated to go into outpatient rehab program. July 08 Doing well. BS still elevated on Lantus. Will add ACHS Lispro Diabetic education Repeat Blood C/S so far negative Plan as d/w ID (Jackson Child, GEORGETTE) today: Ceftriaxone 2 gm daily IM or IV Will FU with pt in office July 09 Tolerating Ceftriaxone IV well No fever Denies pain. Medication reconciliation done Discharge diagnosis: Strepococcus pyogenes (group A Strep) bacteremia, diabetic ketoacidosis, Secondary discharge diagnosis: Pneumonia Dental abscess IV drug use Reason for admission: Sepsis Pertinent studies/significant findings: HIV and hepatitis panel: negative CXR: mild right apical infiltrate ECHOCARDIOGRAM: no vegetations - Time Spent with Patient Total time spent providing and/or coordinating discharge services: Greater than 30 minutes Medical - DS: Exam - Constitutional Vitals: Vital Signs Temp Pulse Resp BP Pulse Ox 07/09/17 08:00 97.9 F 16 120/72 98 07/09/17 04:00 97.1 F 96 H 14 128/82 99 07/09/17 00:00 97.2 F 96 H 14 122/74 99 07/08/17 19:50 97.5 F 90 14 126/78 98 07/08/17 16:00 97.9 F 81 16 125/71 95 Intake and Output 07/08/17 07/09/17 07/09/17 21:59 05:59 13:59 Intake Total 418 / 418 950 / 950 Balance 418 / 418 950 / 950 Intake: IV Pfizerpen 4,000,000 Unit In Sodium Chloride 0.9% 50 ml @ 58 mls/hr IV Q4H [facility] Rx#: [id number] Oral 360 / 360 950 / 950 Other: Stool Color Brown Stool Consistency Soft # Voids 1 Weight 127 lb 1.6 oz Medical - DS: Data Labs on day of discharge: Labs from last 24 hours 07/09/17 07/09/17 07/03/17 04:08 04:00 10:45 WBC 10.7 RBC 3.98 L Hgb 12.1 Hct 35.2 L MCV 88.3 MCH 30.3 MCHC 34.3 RDW 13.2 Plt Count 423 MPV 7.1 L Gran % 66.8 Lymph % (Auto) 23.2 [place] % (Auto) 4.5 Eos % (Auto) 5.2 Baso % (Auto) 0.3 Gran # 7.1 Lymph # (Auto) 2.5 [place] # (Auto) 0.5 Eos # (Auto) 0.6 Baso # (Auto) 0 Sodium 137 Potassium 4.1 Chloride 98 Carbon Dioxide 25 Anion Gap 14.0 BUN 18 Creatinine 0.7 GFR Calculation 123 Glucose 330 H Uric Acid 2.5 Calcium 9.1 Phosphorus 3.0 Magnesium 1.9 Total Bilirubin < 0.2 Direct Bilirubin < 0.2 GGT 19 AST 23 ALT 27 Alkaline Phosphatase 114 Lactate Dehydrogenase 186 Total Protein 6.6 Albumin 3.2 Globulin 3.4 Albumin/Globulin Ratio 0.9 L Triglycerides 184 H Ur L.pneumophila Ag Not detected Preliminary micro results at discharge 07/07/17 04:15 Blood Culture - Preliminary Blood 07/07/17 04:25 Blood Culture - Preliminary Blood 07/04/17 18:05 Blood Culture - Preliminary Blood 07/04/17 18:08 Blood Culture - Preliminary Blood 07/03/17 11:18 Blood Culture - Preliminary Blood Gram positive cocci Medical - DS: A/P - Patient/Caregiver Discharge Instructions Activity: increase activity as tolerated Diet: Consistent Carbohydrate - Follow up Plan Follow up with: Westley Keating ARNP [Physician] - 07/15/17 11:20 am Jackson Child ARNP [Physician] - [facility]: 07/03 - 07/09/17: GSA bacteremia, RUL pneumonia (small), tooth abscess, diabetic ketoacidosis. Known hx of IVDU and non-compliance. Has been on Clinda and PCN since 07/04. Discharged on Ceftriaxone 2 g IV daily. Please, see in one week . TY) [facility] [Outside] Disposition: Home, Self-Care Prognosis: Fair Rehab Potential: Fair Overall status at discharge: patient is back to baseline Medical - DS: Qual - VTE Deep Vein Thrombosis/Pulmonary Embolism Present on Admission: No
== END 2017-07-09 15:00 | disposition home or self-care (01) | DRG 871 ==
LOC: ED 09:54 → ICU 14:35 → MEDSUR 07-06 10:41
PROVIDERS: ADMIT Internal Medicine; ATTEND Specialist